=== PATIENT | female | born 1960 | race Caucasian/White ===

== ENCOUNTER 2019-10-27 06:23 | Emergency (ER) | payer OTHER, SELFPAY ==
[2019-10-27] VITALS (11 sets, daily range): BP systolic 124–150; BP diastolic 61–97; PULSE 71–95; RESP 16–20; TEMP 36.6; O2SAT 96–98
--- NOTE | ~2019-10-27 | XR_ITS ---
EXAMINATION: XR chest 1V portable DATE: 10/27/2019 07:03 INDICATION: Chest pain TECHNIQUE: frontal view of the chest was obtained. COMPARISON: None FINDINGS: Minimal streaky left basilar atelectasis. No other airspace opacities, pulmonary edema, pleural effus ion or pneumothorax. The cardiomediastinal silhouette is normal. Moderate degenerative skeletal [place] es in the spine and bilateral shoulders. IMPRESSION: 1. Minimal left basilar atelectasis. Reviewed, dictated and finalized at location A. DEVELOPER
--- NOTE | 2019-10-27 06:25 | ECG_ITS ---
Measurements Intervals [place] Rate: 90 P: 57 MS: 168 QRS: -58 QRSD: 82 T: 74 QT: 351 QTc: 431 Interpretive Statements SINUS RHYTHM LEFT AXIS DEVIATION POOR R WAVE PROGRESSION, ANTERIOR LEADS BORDERLINE T WAVE ABNORMALITY- LATERAL LEADS BASELINE ARTIFACT- I, II BORDERLINE ECG Electronically Signed On 10-27-2019 7:15:06 OPERATIONAL INTELLIGENCE ANALYST by Corbin Mishra D.O.
--- NOTE | 2019-10-27 06:45 | PC.NURSE ---
Noted pts. pain is chest wall type pain and increases when touching Rt. side upper chest wall and shoulder. Pt. deneis any different type work or injury.
--- NOTE | 2019-10-27 06:51 | ED.CHESTPAIN ---
HPI - Chest Pain General Chief Complaint: Chest Pain <Madhav Vega MD - Last Filed: 10/27/19 07:07> Stated Complaint: chest pains <Madhav Vega MD - Last Filed: 10/27/19 07:07> Time Seen by Provider: 10/27/19 06:35 <Madhav Vega MD - Last Filed: 10/27/19 07:07> Source: patient <Madhav Vega MD - Last Filed: 10/27/19 07:07> Limitations: no limitations <Madhav Vega MD - Last Filed: 10/27/19 07:07> History of Present Illness HPI narrative: Jazmyn is a 59-year-old female patient. She presents to the emergency room herself from home. She states that she started having some pain in the chest at 3:00 a.m.. She describes it as a pressure type of pain. This is just to the right of the sternum. By 4:00 a.m. the pain became constant. It radiates to the right shoulder and then down the right arm. Jazmyn has history of hypertension. She is a smoker. She has history of hypertension. She has not had an AL in the past. She rates the pain at 8/10. <Madhav Vega MD - Last Filed: 10/27/19 07:07> MD complaint: chest pain <Madhav Vega MD - Last Filed: 10/27/19 07:07> Pertinent past history: other ( See HPI narrative above) <Madhav Vega MD - Last Filed: 10/27/19 07:07> Onset (ago): hour(s) ( started at 3:00 a.m. today. By 4:00 a.m. it became constant) <Madhav Vega MD - Last Filed: 10/27/19 07:07> Timing of current episode: constant and still present <MD Shantell Dorado Last Filed: 10/27/19 07:07> Prior episodes: No <Madhav Vega MD - Last Filed: 10/27/19 07:07> Onset: during rest <MD Shantell Dorado Last Filed: 10/27/19 07:07> Pain location: right chest <MD Shantell Dorado Last Filed: 10/27/19 07:07> Pain radiation: right arm and right shoulder <MD Shantell Dorado Last Filed: 10/27/19 07:07> Pain scale (0-10): 8 <MD Shantell Dorado Last Filed: 10/27/19 07:07> Quality: other ( pressure type of pain) <MD Shantell Dorado Last Filed: 10/27/19 07:07> Relieving factors: nothing <MD Shantell Dorado Last Filed: 10/27/19 07:07> Exacerbating factors: palpation and other ( palpation of right costo chondral areas is painful) <MD Shantell Dorado Last Filed: 10/27/19 07:07> Context: other ( no history of trauma. Started spontaneously.) <MD Shantell Dorado Last Filed: 10/27/19 07:07> Associated symptoms: other ( No nausea. No vomiting. No diaphoresis. No dizziness or syncope) <MD Shantell Dorado Last Filed: 10/27/19 07:07> Treatment prior to arrival: none <MD Shantell Dorado Last Filed: 10/27/19 07:07> Risk Factors Coronary artery disease risk factors: hypertension <MD Shantell Dorado Last Filed: 10/27/19 07:07> Related Data On Oral Contraceptives: No <MD Shantell Dorado Last Filed: 10/27/19 07:07> Home Medications: Home Medications Medication Instructions Recorded Confirmed meloxicam 15 mg PO DAILY 10/27/19 10/27/19 sertraline [Zoloft] 50 mg PO DAILY 10/27/19 10/27/19 <MD Shantell Dorado Last Filed: 10/27/19 07:07> Allergies/Adverse Reactions: Allergies Allergy/AdvReac Type Severity Reaction Status Date / Time Penicillins Allergy Intermediate Verified 11/19/18 10:28 <Madhav Vega MD - Last Filed: 10/27/19 07:07> Review of Systems Review of Systems: All systems reviewed & are unremarkable except as noted in HPI and below <Madhav Vega MD - Last Filed: 10/27/19 07:07> Constitutional: Constitutional: Reports as per HPI, Reports no additional constitutional complaints, Denies chills and Denies fever(s) <Madhav Vega MD - Last Filed: 10/27/19 07:07> Eyes: Eyes: Reports as per HPI, Reports no additional eye complaints and Denies change in vision <Madhav Vega MD - L
[2019-10-27] MEDS: ASPIRIN 81 MG CHEWABLE TABLET 324 MG PO (06:54)
[2019-10-27] MEDS: NITROGLYCERIN SL 0.4 MG TABLET SUBLINGUAL (06:55)
[2019-10-27 07:14] LABS: Basophils Absolute Auto 0.06 K/mm3 (0.00-0.10); Basophils Percent Auto 0.6 % (0.0-1.0); Eosinophils Absolute Auto 0.12 K/mm3 (0.02-0.50); Eosinophils Percent Auto 1.2 % (1.0-6.0); Hematocrit 40.2 % (35.0-49.0); Hemoglobin 13.5 g/dL (12.0-15.0); Immature Granulocyte Absolute 0.08 K/mm3 (0.00-0.00); Immature Granulocyte Percent A 0.8 % (0.0-0.0); Lymphocytes Absolute Auto 1.42 K/mm3 (1.10-4.50); Lymphocytes Percent Auto 14.7 % (18.0-42.0); Mean Corpuscular HGB Conc 33.6 g/dL (32.0-36.0); Mean Corpuscular Hemoglobin 28.7 pg (27.0-31.0); Mean Corpuscular Volume 85.5 fL (78.0-102.0); Monocytes Absolute Auto 0.44 K/mm3 (0.10-0.90); Monocytes Percent Auto 4.6 % (2.0-11.0); Neutrophils Absolute Auto 7.5 K/mm3 (1.7-7.2); Neutrophils Percent Auto 78.1 % (50.0-70.0); Platelet Count Result 273 K/mm3 (150-420); Red Cell Distribution Width 11.9 % (11.6-14.4); White Blood Count 9.7 K/mm3 (4.8-10.8)
[2019-10-27 07:27] LABS: Partial Thromboplastin Time 23.5 SEC (22.3-31.6); Prothrombin Time 10.7 Seconds (9.64-11.0)
[2019-10-27 07:38] LABS: BNP 20.2 pg/mL (0-100)
[2019-10-27 07:41] LABS: Alanine Aminotransferase 39 U/L (14-59); Albumin Level 3.8 g/dL (3.4-5.0); Alkaline Phosphatase 136 U/L (46-116); Aspartate Amino Transferase 24 U/L (15-37); Bilirubin,Total 0.4 mg/dL (0.00-1.00); Blood Urea Nitrogen 17 mg/dL (7-18); Calcium 8.6 mg/dL (8.5-10.1); Carbon Dioxide 27 mmol/L (21-32); Chloride 104 mmol/L (98-108); Creatine Kinase 36 U/L (26-192); Estimated CRCL calculation 76 ml/min; Estimated Glomerular Filt Rate > 60; Glucose 207 mg/dL (70-99); Magnesium 1.6 mg/dL (1.8-2.4); Osmolality Calculated 297 mOsm/kg (285-295); Sodium 140 mmol/L (136-145); Total Protein 7.9 g/dL (6.4-8.2)
[2019-10-27 07:42] LABS: Troponin I < 0.02 ng/mL (0.00-0.056)
--- NOTE | 2019-10-27 08:21 | PC.NURSE ---
ERP spoke c pt. re:tests and POC for another Trop draw in 3 hrs. Pt. resting, VSS, Mon. shows NSR.
[2019-10-27] MEDS: PANTOPRAZOLE SODIUM IV 40 MG VIAL IV PUSH (08:48)
--- NOTE | 2019-10-27 09:36 | PC.NURSE ---
Pt. sleeping, VSS, Mon. NSR.
[2019-10-27 10:30] LABS: Troponin I 0.43 ng/mL (0.00-0.056)
--- NOTE | 2019-10-27 10:30 | ECG_ITS ---
Measurements Intervals [place] Rate: 89 P: 64 [place]: 163 QRS: 259 QRSD: 86 T: 90 QT: 361 QTc: 441 Interpretive Statements SINUS RHYTHM INDETERMINATE AXIS LOW QRS VOLTAGE IN LIMB LEADS POOR R WAVE PROGRESSION, ANTERIOR LEADS BORDERLINE T WAVE ABNORMALITY- LATERAL LEADS BORDERLINE ECG Electronically Signed On 10-27-2019 10:51:14 OUTSIDE MAINTENANCE WORKER by Corbin Mishra D.O.
--- NOTE | 2019-10-27 10:36 | PC.NURSE ---
Call back from lab c report of elevated Troponin. ERP spoke c pt. about transfer to [facility] for Non-Stemi. Call placed to [facility] cooridinator. Will await call back from manager private.. Pt. reports minimal pain, VSS, mon. shows NSR.
--- NOTE | 2019-10-27 10:58 | PC.NURSE ---
Pt.r clement beltran, VSS, Report given to ELLIS walsh
[2019-10-27] MEDS: METOPROLOL TARTRATE 25 MG TABLET PO (11:23)
[2019-10-27] MEDS: HEPARIN SODIUM 5,000 UNITS/ML VIAL 4000 UNITS IV PUSH (11:24)
[2019-10-27] MEDS: HEPARIN SOD/D5W 100 UNITS/ML 25,000 UNITS/250 ML BAG 11.88 UNITS IV CONT (11:24)
--- NOTE | 2019-10-27 11:42 | PC.NURSE ---
DR. HOUSTON AND DR WASHINGTON TO ACCEPT PT AT [facility]. AWAITING BED ASSIGNMENT. PT RESTING COMFORTABLY ON STRETCHER, NOT COMPLAINTS AT THIS TIME.
--- NOTE | 2019-10-27 12:50 | PC.NURSE ---
REPORT TO JOSE A Amanda, [facility] CONTACTED FOR TRANSPORT.
--- NOTE | 2019-10-27 12:59 | PC.NURSE ---
Pt ambulatory to bathroom, no complaints at this time. Awaiting [facility] for transfer.
--- NOTE | 2019-10-27 13:05 | PC.NURSE ---
Per protocol heparin drip maximum is 1000 units/hour, edp advised of protocol and vorb for dosage change to 1000 units per hour (10ml/hr) of heparin iv.
--- NOTE | 2019-10-27 13:29 | PC.NURSE ---
Marta at [facility] contacted with 6 hour troponin and heparin drip dosage.
== END 2019-10-27 13:20 | disposition short-term general hospital (02) ==
PROVIDERS: Surgery; Emergency Provider Emergency Medicine; PCP Nurse Practitioner Family
DX: I21.4 Non-ST elevation (NSTEMI) myocardial infarction (principal); R07.89 Other chest pain; I10 Essential (primary) hypertension; F17.200 Nicotine dependence, unspecified, uncomplicated
CPT/HCPCS: 36415; 71045; 80053; 82550; 82553; 83735; 83880; 84484; 85025; 85380; 85610; 85730; 93005; 96365; 96366; 96375; 99285; A9270; C9113; J1644

== ENCOUNTER 2019-10-27 14:00 | Inpatient (IN) | payer OTHER, SELFPAY ==
[2019-10-27] VITALS (17 sets, daily range): BP systolic 109–165; BP diastolic 69–99; PULSE 61–101; RESP 10–30; TEMP 36.3–37.2; O2SAT 95–100; BMI 36.0
--- NOTE | 2019-10-27 | ECHO_ITS ---
Patient Info Name: Jazmyn Mcdonald Age: 59 years : 1960 Gender: Female Ht: 66 in Wt: 222 lbs BSA: 2.21 m2 HR: 73 bpm BP: 142 / 99 mmHg Heart Rhythm: Sinus Rhythm Technical Quality: Fair Exam Date: 10/27/2019 3:10 PM Exam Location: [facility] Patient Status: Inpatient Admit Date: 10/27/2019 Staff Ordering Physician: Jesus Kennedy MD General Road Production Manager: Edgardo Peterson RDCS Attending Provider: Tonny Darnell MD Exam Type: CA echo doppler color flow Study Info Indications I21.4 - Non-ST elevation (NSTEMI) myocardial infarction Complete two-dimensional, color flow and Doppler transthoracic echocardiogram is performed. History/Risk Factors NSTEMI; chest pain and HTN. Summary 1. Left ventricular systolic function is normal, estimated at 60-65%. 2. The left ventricular diastolic function is normal. 3. Left ventricular chamber dimension is normal. 4. There is trace mitral valve regurgitation. 5. There is mild tricuspid valve regurgitation. Left Ventricle Left ventricular chamber dimension is normal. Left ventricular systolic function is normal, estimated at 60-65%. There is no increased left ventricular wall thickness. Left ventricular septal wall motion is normal. The left ventricular diastolic function is normal. Right Ventricle Right ventricular chamber dimension is normal. Right ventricular systolic function is normal. Left Atria Left atrial chamber dimension is normal. Right Atria Right atrial chamber dimension is normal. Aortic Valve The aortic valve is trileaflet. There is no aortic valve sclerosis. There is no aortic valve stenosis. There is no aortic valve regurgitation. Pulmonic Valve The pulmonic valve is normal. There is no pulmonic valve stenosis. There is no pulmonic regurgitation. Mitral Valve The mitral valve has normal leaflets. There is no mitral valve stenosis. There is trace mitral valve regurgitation. Tricuspid Valve The tricuspid valve leaflets are normal. There is no significant tricuspid valve stenosis. There is mild tricuspid valve regurgitation. Pericardium/Pleural The pericardium appears normal. There is no pericardial effusion. Aorta The aortic root size at the sinus of Valsalva is normal. The prox ascending aorta size is normal. Tricuspid Valve Name Value Normal Estimated PAP/RSVP RA Pressure 5 mmHg <=5 Report Signatures
--- NOTE | 2019-10-27 14:00 | PC.NURSE ---
This patient, Jazmyn Mcdonald, was admitted to IMU Room 213-01. Patient/family oriented to hospital policies and general routines including ID bracelet, bed and alarms, visiting hours, pain management, procedures, bathroom and other care routines, personal items, smoking policy, room service/diet, and visiting hours. Valuables list has been completed. Information on how to activate the Rapid Response Team has been discussed. Patient/Family are encouraged to report perceived risks to care and to ask questions if they do not understand what they are told or what they should do.
--- NOTE | 2019-10-27 15:30 | PM.CNCAR ---
Assessment and Plan Assessment and plan (1) Acute non-ST elevation myocardial infarction (NSTEMI): Code(s): I21.4 - Non-ST elevation (NSTEMI) myocardial infarction Status: Acute Assessment and Plan: She had significant chest pain, her troponin slightly elevated, will start on aspirin and heparin, will proceed with cardiac catheterization. Procedure discussed with the patient, risks, benefits, alternative diagnostic measures were explained (2) Atypical chest pain: Code(s): R07.89 - Other chest pain Status: Acute Assessment and Plan: With troponin elevation, suggestive of non ST elevation myocardial infarction. (3) Nonsustained ventricular tachycardia: Code(s): I47.2 - Ventricular tachycardia Status: Acute Assessment and Plan: She had 1 episode of nonsustained ventricular tachycardia, not symptomatic, will start on metoprolol, treat her underlying ischemia with heparin and aspirin, and proceed with cardiac catheterization today (4) Smoking: Code(s): F17.200 - Nicotine dependence, unspecified, uncomplicated Status: Acute (5) Leg swelling: Code(s): M79.89 - Other specified soft tissue disorders Status: Acute (6) Morbid obesity: Code(s): E66.01 - Morbid (severe) obesity due to excess calories Status: Acute Additional Plan Thank you for allowing me to participate in this patient's care, I will be following up with you. Please do not hesitate to call me for any other inquiry History of Present Illness History of Present Illness Consult date/time: 10/27/19 15:30 Chief complaint is chest pain. 59-year-old lady with history of hypertension, history of smoking, came to the hospital because of chest pain. Initially is having right shoulder pain and subsequently started having shortness breath and after that start having central chest pain with radiation to right shoulder, and then with radiation to the left shoulder. Pain was 8/10 initially she arrived to [facility], and there noted to have slightly elevated troponin. She was transferred here for further evaluation and treatment. Her pain improved but now as I am talking to her she has 2/10, and she had 1 run of nonsustained ventricular tachycardia. No known history of coronary artery disease no history previous myocardial infarction. She was she is relatively active but she has been having significant worsening shortness of breath for the past few weeks. No dizziness no syncope she has [id number] leg swelling more so on the left leg Reason For Visit: NSTEMI Review of Systems Constitutional: Constitutional: Reports fatigue, Reports lethargy and Reports weakness Cardiovascular: Cardiovascular: Reports as per HPI Respiratory: Respiratory: Reports dyspnea Gastrointestinal: Gastrointestinal: Reports heartburn, Denies nausea and Denies vomiting [facility] Past Medical History Medical History Anxiety Hypertension Family History Family History Father , father in his 70s. He was diabetic Diabetes mellitus Sibling Diabetes mellitus Grandparent Breast cancer Skin cancer Hypertension Grandparent Pancreatic cancer Social History Social History Smoking status: Current every day smoker Alcohol intake: unknown Substance use: unknown Substance use type: does not use Spiritual care concerns: No Agree to blood products: Yes Meds Home Medications and Allergies Home Medications Medication Instructions Recorded Confirmed Type amlodipine 10 mg tablet 10 mg PO DAILY #30 tablet 08/17/19 10/27/19 Rx benazepril 40 mg tablet 40 mg PO DAILY #30 tablet 08/17/19 10/27/19 Rx levothyroxine 200 mcg tablet 200 mcg PO DAILY #30 tablet 08/17/19 10/27/19 Rx meloxicam 15 mg PO DAILY 10/27/19 10/27/19 History
[2019-10-27 15:47] LABS: Cholesterol 149 mg/dL (0-200); HDL Direct 64 mg/dL; Triglycerides 96 mg/dL (<150)
--- NOTE | 2019-10-27 15:49 | PM.IMHP ---
H&P: HPI History of Present Illness Chief complaint: NSTEMI Narrative: Date of visit 10/27 1529. Jazmyn Mcdonald is a 59 year old hypertensive white female smoker who was awoken from sleep approximately 2-3 a.m. with substernal pressure sensation. She had no associated symptoms of diaphoresis nausea or shortness of breath. Pain seemed to radiate from right arm and after an hours and worsened so she drove herself to the emergency room. On arrival to the emergency room she was given aspirin and nitroglycerin and pain started to subside. First troponin was not detected but the 2nd was elevated at 0.43, cardiology was contacted and she is transferred to [facility]. She has never had pain like this in the past and her risk factors include smoking and hypertension but no family history or hyperlipidemia. She was given a beta-laith along with the aspirin and started on heparin drip before transfer. 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 He was diabetic Diabetes mellitus Sibling Diabetes mellitus Grandparent Breast cancer Skin cancer Hypertension Grandparent Pancreatic cancer Social History Social History Smoking status: Current every day smoker Tobacco type: cigarettes Alcohol intake: unknown Substance use: unknown Substance use type: does not use Spiritual care concerns: No Agree to blood products: Yes Meds Home Medications and Allergies Home Medications Medication Instructions Recorded Confirmed Type amlodipine 10 mg tablet 10 mg PO DAILY #30 tablet 08/17/19 10/27/19 Rx benazepril 40 mg tablet 40 mg PO DAILY #30 tablet 08/17/19 10/27/19 Rx levothyroxine 200 mcg tablet 200 mcg PO DAILY #30 tablet 08/17/19 10/27/19 Rx meloxicam 15 mg PO DAILY 10/27/19 10/27/19 History sertraline [Zoloft] 50 mg PO DAILY 10/27/19 10/27/19 History Allergies Allergy/AdvReac Type Severity Reaction Status Date / Time Penicillins Allergy Severe Anaphylactic Verified 10/27/19 15:04 Shock Vital Signs Vital Signs - 24 hr 10/27/19 14:00 Temperature 36.3 C L Pulse Rate 72 Respiratory Rate 16 Blood Pressure 142/99 H Pulse Oximetry 96 Exam Narrative: Exam Narrative: Blood pressure 142/86 pulse 72 she is afebrile saturating 95% on room air Pupils equal reactive to light sclera anicteric Neck supple no adenopathy thyromegaly carotid bruits Lungs clear CV regular rate rhythm no murmurs or gallops There is some pain on palpation right anterior chest wall which is not the same as the pain she experienced this a.m. Abdomen soft nontender no masses bowel sounds normal active Extremities without edema distal pulses are 2+ Integument no rashes or skin breakdown Neuro cranial nerves 2-12 are intact no focal neurological deficit Psych profound affect pleasant Assessment and Plan Assessment and plan (1) Acute non-ST elevation myocardial infarction (NSTEMI): Code(s): I21.4 - Non-ST elevation (NSTEMI) myocardial infarction Status: Acute Assessment and Plan: Troponin is climbed above 1. Still no EKG changes and chest pain is
[2019-10-27 15:55] LABS: Basophils Absolute Auto 0.1 K/mm3 (0.0-0.1); Basophils Percent Auto 0.5 % (0.2-1.2); Eosinophils Absolute Auto 0.1 K/mm3 (0-0.3); Eosinophils Percent Auto 0.8 % (0-4.4); Hematocrit 39.8 % (37.0-47.0); Hemoglobin 13.2 g/dL (12.0-15.0); Immature Granulocyte Absolute 0.07 K/mm3 (0.00-0.031); Immature Granulocyte Percent A 0.6 % (0-0.5); Lymphocytes Absolute Auto 2.06 K/mm3 (0.9-3.2); Lymphocytes Percent Auto 18.4 % (18.3-44.2); Mean Corpuscular HGB Conc 33.2 g/dl (32-36); Mean Corpuscular Hemoglobin 28.5 pg (26-34); Mean Platelet Volume 9.6 fl (7.4-10.4); Monocytes Absolute Auto 0.6 K/mm3 (0.1-0.6); Monocytes Percent Auto 5.4 % (2.6-8.5); Neutrophils Absolute Auto 8.3 K/mm3 (1.3-6.7); Neutrophils Percent Auto 74.3 % (45.5-73.1); Platelet Count Result 327 k/mm3 (150-375); Red Blood Count 4.63 M/mm3 (4.2-5.4); Red Cell Distribution Width 12.1 % (11.5-14.5); White Blood Count 11.2 K/mm3 (4.5-10.0)
[2019-10-27 15:58] LABS: LDL Cholesterol Direct 78 mg/dL
--- NOTE | 2019-10-27 16:00 | PC.NURSE ---
Pt to laboratory technician for procedure
[2019-10-27 16:06] LABS: INR 1.1; Prothrombin Time 13.5 Seconds (11.1-14.7)
[2019-10-27 16:07] LABS: Partial Thromboplastin Time 41.1 SECONDS (22.3-36.8)
--- NOTE | 2019-10-27 19:01 | P.PCNCC_ITS ---
Cardiac Cath Procedure Note Date of procedure:: 10/27/19 Performing physician:: Jesus Kennedy MD Procedure: 1. Left heart catheterization, selective coronary angiogram. 2. Left ventricular angiogram. 3. Balloon angioplasty to the diagonal branch of the LAD. 4. Stent placement to the diagonal branch of the LAD 5. Conscious sedation. Census Taker: Dr. Jesus Kennedy Complications: None. Sedation: Conscious sedation, local anesthesia, using 1 mg of Versed said, 25 mcg of fentanyl, and using 1% lidocaine for local anesthesia. Technique: After informed consent was obtained from patient, was brought to the floating labor gang supervisor, put in the floating labor gang supervisor table, prepped and draped in usual sterile fashion. Five Taiwanese sheath was inserted into the right common femoral artery, through the sheath 5 Taiwanese JL4 catheter inserted, advanced to the left coronary artery, left coronary artery angiogram was obtained. The catheter was exchanged over guidewire into a 5 Taiwanese JR4 catheter, advanced to the right coronary artery, right coronary artery angiogram was obtained. The catheter then was exchanged over guidewire into this 5 Taiwanese pigtail catheter, advanced to left ventricle, left ventricular angiogram was obtained. this sheath was changed over guidewire to 6 Taiwanese sheath, through that guiding catheter was inserted CLS 3.5 insert to the left main, and repeat angiogram was done, subsequently BMW wire was inserted advanced to the area of narrowing to that diagonal branch, and subsequently emerge balloon was inserted 2 0 x 12, inserted advanced to the area of narrowing, inflation was made with 10 atmospheric pressure. Repeat angioplasty was done slightly distally, with significant improvement of the lesion. Repeat angiogram showed recurrence of the lesion with the recoil, and it was decided to proceed with stent placement. 2.25 x 8 mm Xience stent was used. Final angiogram after the stent placement showed good result with DOUG 3 flow Hemodynamics: aortic pressure 124/60 . LV pressure 124/04 with LVEDP of 16 mmHg Angiographic findings: Left main: Medium size artery no significant disease or stenosis. Lad medium size artery showed no significant disease or stenosis however this 2nd diagonal branch showed total occlusion of the proximal portion. This was treated with balloon angioplasty followed by stent with good distal flow finally Left circumflex artery, medium size artery, no significant disease or stenosis. RCA: Dominant vessel, showed no significant disease or stenosis LV: Normal size left ventricle with normal left ventricular systolic function. Summary: single-vessel coronary disease with total occlusion of the 2nd diagonal branch, status post angioplasty with stent placement using 2.25 by 8 stent with good results Recommendation: continue Angiomax for 2 more hours, after sheath pulling will continue with aspirin Brilinta metoprolol and Crestor
[2019-10-27] MEDS: SODIUM CHLORIDE 0.9% IV 1,000 ML 80 ML IV CONT (19:39)
[2019-10-27] MEDS: AMLODIPINE BESYLATE 5 MG TABLET PO (19:42)
[2019-10-27] MEDS: ATORVASTATIN 40 MG TABLET PO (19:45)
[2019-10-27] MEDS: hydrALAZINE HCL 20 MG/ML VIAL 10 MG IV PUSH (20:43)
[2019-10-28] VITALS (17 sets, daily range): BP systolic 97–134; BP diastolic 36–92; PULSE 58–107; RESP 9–19; TEMP 36.7–37.1; O2SAT 86–98
--- NOTE | 2019-10-28 00:19 | ECG_ITS ---
Measurements Intervals [place] Rate: 43 P: 0 DC: 183 QRS: 3 QRSD: 98 T: 109 QT: 416 QTc: 353 Interpretive Statements SINUS BRADYCARDIA WITH MARKED SINUS ARRHYTHMIA SINUS PAUSE ST-T WAVE ABNORMALITY IN LATERAL LEADS- CONSIDER ISCHEMIA BASELINE ARTIFACT- AVR, AVL, AVF ABNORMAL ECG Electronically Signed On 10-28-2019 7:09:53 CLAM DREDGER by Corbin Mishra D.O.
[2019-10-28] MEDS: TICAGRELOR 90 MG TABLET PO ×3 (00:58→20:38)
[2019-10-28 04:59] LABS: Basophils Absolute Auto 0.1 K/mm3 (0.0-0.1); Basophils Percent Auto 0.5 % (0.2-1.2); Eosinophils Absolute Auto 0.1 K/mm3 (0-0.3); Eosinophils Percent Auto 1.1 % (0-4.4); Hematocrit 37.8 % (37.0-47.0); Hemoglobin 12.9 g/dL (12.0-15.0); Immature Granulocyte Absolute 0.06 K/mm3 (0.00-0.031); Immature Granulocyte Percent A 0.6 % (0-0.5); Lymphocytes Absolute Auto 1.38 K/mm3 (0.9-3.2); Lymphocytes Percent Auto 14.4 % (18.3-44.2); Mean Corpuscular HGB Conc 34.1 g/dl (32-36); Mean Corpuscular Hemoglobin 28.7 pg (26-34); Mean Platelet Volume 9.1 fl (7.4-10.4); Monocytes Absolute Auto 0.7 K/mm3 (0.1-0.6); Monocytes Percent Auto 6.8 % (2.6-8.5); Neutrophils Absolute Auto 7.4 K/mm3 (1.3-6.7); Neutrophils Percent Auto 76.6 % (45.5-73.1); Platelet Count Result 285 k/mm3 (150-375); White Blood Count 9.6 K/mm3 (4.5-10.0)
[2019-10-28 05:13] LABS: Blood Urea Nitrogen 14 mg/dL (7-17); Calcium 9.1 mg/dL (8.4-10.2); Carbon Dioxide 25 mmol/L (22-30); Chloride 97 mmol/L (98-107); Estimated CRCL calculation 123 ml/min; Estimated Glomerular Filt Rate > 60; Glucose 143 mg/dL (65-105); Potassium 3.7 mmol/L (3.4-5.0); Sodium 136 mmol/L (137-145)
[2019-10-28 06:24] LABS: Hemoglobin A1C 7.6 % (<5.7)
[2019-10-28] MEDS: LEVOTHYROXINE SODIUM 100 MCG TABLET 200 MCG PO (06:58)
[2019-10-28] MEDS: lisinopriL 20 MG TABLET 40 MG PO (08:39)
[2019-10-28] MEDS: PANTOPRAZOLE 40 MG TABLET PO (08:39)
[2019-10-28] MEDS: SERTRALINE HCL 50 MG TABLET PO (08:40)
[2019-10-28] MEDS: ASPIRIN 81 MG CHEWABLE TABLET PO (08:40)
[2019-10-28] MEDS: ROSUVASTATIN 10 MG TABLET PO (08:40)
[2019-10-28] MEDS: AMLODIPINE BESYLATE 5 MG TABLET 10 MG PO (08:40)
[2019-10-28] MEDS: METOPROLOL TARTRATE 25 MG TABLET PO ×2 (09:00→20:38)
--- NOTE | 2019-10-28 10:41 | PM.PNCARD ---
Progress Note: A&P Assessment and Plan (1) Hypertension: Code(s): I10 - Essential (primary) hypertension Status: Acute Assessment and Plan: now well controlled cont meds (2) CAD (coronary artery disease): Code(s): I25.10 - Atherosclerotic heart disease of [place] coronary artery without angina pectoris Status: Acute Assessment and Plan: Pt underwent cath and was found to have disease of D2. She underwent PCI/stenting with NENO will need to complete Brilinta therapy for at least one year and ASA 81 QD indefinitely.cont statin and Bblocker Patient appears stable from cardiac standpoint to be transferred to telemetry floor Subjective Date/time seen: 10/28/19 10:41 Pt feels fine. Denies any CP, SOB or palpitations. No LE edema. Pt was seen and examined, chart was reviewed, case d/w pt's nurse. Review of Systems Review of Systems: All systems reviewed & are unremarkable except as noted in HPI and below Constitutional: Constitutional: Reports as per HPI Eyes: Eyes: Reports as per HPI ENT: Reports system reviewed and no additional complaints, except as documented and Reports as per HPI Cardiovascular: Cardiovascular: Reports as per HPI Respiratory: Respiratory: Reports as per HPI Gastrointestinal: Gastrointestinal: Reports as per HPI Genitourinary: Genitourinary: Reports as per HPI Musculoskeletal: Musculoskeletal: Reports as per HPI Exam Const: General: no acute distress Nutritional Appearance: well nourished Orientation/consciousness: patient oriented x3 HENMT: Head: normal to inspection and atraumatic Ears: hearing grossly normal bilaterally Face and sinus: normal facial exam Eyes: General: appearance normal, both eyes and all related structures Pupils: Equal, round and reactive pupils present EOM: EOMs intact bilaterally Neck: Neck: supple Chest: Chest palpation & inspection: normal inspection of the chest Resp: Effort & Inspection: normal respiratory effort and no respiratory distress Auscultation: clear to auscultation bilaterally Cardio: Jugular venous distension: no JVD Rate: regular rate Heart sounds: S1 normal heart sound present, S2 normal heart sound present and no murmurs Peripheral pulses: Peripheral pulses 2+ throughout GI: GI Palp: No abdominal tenderness Auscultation: normal bowel sounds Skin: General skin exam: normal color Neuro: General: patient oriented x3 Cranial nerves: Yes Equal, round and reactive pupils present Extrem: General: normal to inspection, no clubbing, cyanosis or edema and other (R groin clear, no bleeding or hematoma) Objective Data Vital Signs Vital Signs: Vital Signs - 24 hr 10/27/19 14:00 10/27/19 16:00 10/27/19 17:45 Temperature 36.3 C L Pulse Rate 72 85 76 Pulse Rate [Bilateral Pedal (Dorsalis Pedis) Palpation] Respiratory Rate 16 18 Blood Pressure 142/99 H Pulse Oximetry 96 99 10/27/19 18:00 10/27/19 18:15 10/27/19 18:30 Temperature Pulse Rate 72 72 78 Pulse Rate [Bilateral Pedal (Dorsalis Pedis) Palpation] Respiratory Rate 14 15 18 Blood Pressure Pulse Oximetry 99 99 100 10/27/19 19:00 10/27/19 19:30 10/27/19 20:00 Temperature 37.1 C Pulse Rate 72 61 68 Pulse Rate [Bilateral Pedal (Dorsalis Pedis) Palpation] 72 61 Respiratory Rate 16 18 18 Blood Pressure 146/88 H 153/97 H 153/97 H Pulse Oximetry 98 98 98 10/27/19 20:30 10/27/19 21:30 10/27/19 22:00 Temperature 37.2 C Pulse Rate 73 78 101 H Pulse Rate [Bilateral Pedal (Dorsalis Pedis) Palpation] 73 78 101 H Respiratory Rate 17 14 30 H Blood Pressure 165/97 H 145/86 H 109/69 Pulse Oximetry 97 98 100 10/27/19 22:15 10/27/19 22:30 10/27/19 22:45 Temperature Pulse Rate 75 81 81 Pulse Rate [Bilateral Pedal (Dorsalis Pedis) Palpation] 75 81 81 Respiratory Rate 13 16 10 L Blood Pressure 129/81 134/80 132/90 Pulse Oximetry 98 98 98 10/27/19 23:00 10/27/19 23:30 10/28/19 00:00 Temperature 36.7 C Pulse
--- NOTE | 2019-10-28 16:37 | PM.IMPN ---
Progress Note: A&P Assessment and Plan (1) Acute non-ST elevation myocardial infarction (NSTEMI): Code(s): I21.4 - Non-ST elevation (NSTEMI) myocardial infarction Status: Inactive Assessment and Plan: Troponin is climbed above 1. Still no EKG changes and chest pain is subsided. cardiac catheterization revealed the occluded 2nd diagonal which was stented She has received beta-laith, aspirin, IV heparin, and statin has been ordered and now on Brilinta, aspirin (2) Hypertension: Code(s): I10 - Essential (primary) hypertension Status: Acute Assessment and Plan: Blood pressure fair. Continue her amlodipine and DIOGENES-inhibitor and a beta-laith (3) Elevated blood sugar: Code(s): R73.9 - Hyperglycemia, unspecified Status: Acute Assessment and Plan: 7.6 A1c so will be discharging with metformin also (4) Smoking: Code(s): F17.200 - Nicotine dependence, unspecified, uncomplicated Status: Acute Assessment and Plan: Nicotine patch if needed encouraged to stop smoking (5) DVT prophylaxis: Code(s): Z29.9 - Encounter for prophylactic measures, unspecified Status: Acute Assessment and Plan: Low-dose Lovenox Subjective Date/time seen: 10/28/19 16:37 Interval history: Date of visit 10/28 51-year-old hypertensive white female admitted with chest discomfort and elevated troponin. At catheterization 10/27 was found to have occlusion of 2nd diagonal branch of the LAD which was opened and stented. She feels quite well this a.m. with no shortness of breath or chest discomfort. No other lesions found Exam Narrative: Exam Narrative: Blood pressure 134/86 pulse 72 she is afebrile saturating 95% on room air Pupils equal reactive to light sclera anicteric Neck supple no carotid bruits Lungs clear CV regular rate rhythm no murmurs or gallops. Abdomen soft nontender no masses bowel sounds normal active Extremities without edema distal pulses are 2+ Neuro cranial nerves 2-12 are intact no focal neurological deficit Objective Data Vital Signs Vital Signs: Vital Signs - 24 hr 10/27/19 17:45 10/27/19 18:00 10/27/19 18:15 Temperature Pulse Rate 76 72 72 Pulse Rate [Bilateral Pedal (Dorsalis Pedis) Palpation] Respiratory Rate 18 14 15 Blood Pressure Pulse Oximetry 99 99 99 10/27/19 18:30 10/27/19 19:00 10/27/19 19:30 Temperature Pulse Rate 78 72 61 Pulse Rate [Bilateral Pedal (Dorsalis Pedis) Palpation] 72 61 Respiratory Rate 18 16 18 Blood Pressure 146/88 H 153/97 H Pulse Oximetry 100 98 98 10/27/19 20:00 10/27/19 20:30 10/27/19 21:30 Temperature 37.1 C Pulse Rate 68 73 78 Pulse Rate [Bilateral Pedal (Dorsalis Pedis) Palpation] 73 78 Respiratory Rate 18 17 14 Blood Pressure 153/97 H 165/97 H 145/86 H Pulse Oximetry 98 97 98 10/27/19 22:00 10/27/19 22:15 10/27/19 22:30 Temperature 37.2 C Pulse Rate 101 H 75 81 Pulse Rate [Bilateral Pedal (Dorsalis Pedis) Palpation] 101 H 75 81 Respiratory Rate 30 H 13 16 Blood Pressure 109/69 129/81 134/80 Pulse Oximetry 100 98 98 10/27/19 22:45 10/27/19 23:00 10/27/19 23:30 Temperature Pulse Rate 81 77 77 Pulse Rate [Bilateral Pedal (Dorsalis Pedis) Palpation] 81 77 77 Respiratory Rate 10 L 13 16 Blood Pressure 132/90 123/75 115/82 Pulse Oximetry 98 98 95 10/28/19 00:00 10/28/19 01:00 10/28/19 02:00 Temperature 36.7 C Pulse Rate 87 93 Pulse Rate [Bilateral Pedal (Dorsalis Pedis) Palpation] 72 93 Respiratory Rate 14 14 Blood Pressure 117/85 122/86 Pulse Oximetry 86 L 96 97 10/28/19 03:00 10/28/19 04:00 10/28/19 06:00 Temperature 37.1 C Pulse Rate 86 68 70 Pulse Rate [Bilateral Pedal (Dorsalis Pedis) Palpation] 86 Respiratory Rate 9 L 12 11 L Blood Pressure 124/79 110/71 117/90 Pulse Oximetry 98 95 98 10/28/19 08:00 10/28/19 08:59 10/28/19 09:00 Temperature 36.7 C Pulse Rate 92 107 H 83 Pulse Rate [Bilateral Pedal (Dorsalis Pedis
[2019-10-28] MEDS: ENOXAPARIN 40 MG/0.4 ML SYRINGE SUB-Q (20:38)
[2019-10-29] VITALS (7 sets, daily range): BP systolic 95–123; BP diastolic 60–86; PULSE 59–96; RESP 12–20; TEMP 36.8–37.1; O2SAT 96–100
[2019-10-29 04:48] LABS: Basophils Absolute Auto 0.1 K/mm3 (0.0-0.1); Basophils Percent Auto 0.6 % (0.2-1.2); Eosinophils Absolute Auto 0.1 K/mm3 (0-0.3); Eosinophils Percent Auto 1.6 % (0-4.4); Hematocrit 36.9 % (37.0-47.0); Hemoglobin 12.5 g/dL (12.0-15.0); Immature Granulocyte Absolute 0.06 K/mm3 (0.00-0.031); Immature Granulocyte Percent A 0.7 % (0-0.5); Lymphocytes Absolute Auto 1.86 K/mm3 (0.9-3.2); Lymphocytes Percent Auto 22.2 % (18.3-44.2); Mean Corpuscular HGB Conc 33.9 g/dl (32-36); Mean Corpuscular Hemoglobin 29.3 pg (26-34); Mean Corpuscular Volume 86.4 fl (80-100); Mean Platelet Volume 9.5 fl (7.4-10.4); Monocytes Absolute Auto 0.7 K/mm3 (0.1-0.6); Monocytes Percent Auto 8.6 % (2.6-8.5); Neutrophils Absolute Auto 5.5 K/mm3 (1.3-6.7); Neutrophils Percent Auto 66.3 % (45.5-73.1); Platelet Count Result 257 k/mm3 (150-375); Red Blood Count 4.27 M/mm3 (4.2-5.4); Red Cell Distribution Width 12.3 % (11.5-14.5); White Blood Count 8.4 K/mm3 (4.5-10.0)
[2019-10-29 05:03] LABS: Blood Urea Nitrogen 21 mg/dL (7-17); Calcium 9.2 mg/dL (8.4-10.2); Carbon Dioxide 26 mmol/L (22-30); Chloride 99 mmol/L (98-107); Estimated CRCL calculation 91 ml/min; Estimated Glomerular Filt Rate > 60; Glucose 130 mg/dL (65-105); Potassium 3.8 mmol/L (3.4-5.0); Sodium 137 mmol/L (137-145)
[2019-10-29] MEDS: LEVOTHYROXINE SODIUM 100 MCG TABLET 200 MCG PO (05:30)
[2019-10-29] MEDS: SERTRALINE HCL 50 MG TABLET PO (08:33)
[2019-10-29] MEDS: TICAGRELOR 90 MG TABLET PO (08:33)
[2019-10-29] MEDS: METOPROLOL TARTRATE 25 MG TABLET PO (08:33)
[2019-10-29] MEDS: ROSUVASTATIN 10 MG TABLET PO (08:34)
[2019-10-29] MEDS: PANTOPRAZOLE 40 MG TABLET PO (08:34)
[2019-10-29] MEDS: lisinopriL 20 MG TABLET 40 MG PO (08:34)
[2019-10-29] MEDS: ASPIRIN 81 MG CHEWABLE TABLET PO (08:34)
[2019-10-29] MEDS: AMLODIPINE BESYLATE 5 MG TABLET 10 MG PO (08:34)
--- NOTE | 2019-10-30 18:32 | PM.DS ---
DS: Diagnosis Admitting Diagnosis Admitting Diagnosis: Non-ST elevation (NSTEMI) myocardial infarction Discharge Diagnosis (1) Acute non-ST elevation myocardial infarction (NSTEMI): Code(s): I21.4 - Non-ST elevation (NSTEMI) myocardial infarction Status: Inactive Assessment and Plan: Troponin is climbed above 1. Still no EKG changes and chest pain is subsided. cardiac catheterization revealed the occluded 2nd diagonal which was stented She has received beta-laith, aspirin, IV heparin, and statin has been ordered and now on Brilinta, aspirin Pain-free and able to be discharged home post catheterization activity level per Cardiology (2) Hypertension: Code(s): I10 - Essential (primary) hypertension Status: Acute Assessment and Plan: Blood pressure fair. Continue her amlodipine and DIOGENES-inhibitor and a beta-laith (3) Elevated blood sugar: Code(s): R73.9 - Hyperglycemia, unspecified Status: Acute Assessment and Plan: 7.6 A1c so will be discharging with metformin 500 daily and following up with her primary care also (4) Smoking: Code(s): F17.200 - Nicotine dependence, unspecified, uncomplicated Status: Acute Assessment and Plan: Nicotine patch while here and encouraged to stop smoking DS: Summary Hospital Course Hospital Course: 51-year-old hypertensive white female with hyperlipidemia admitted chest discomfort and found to have occluded 2nd diagonal I catheterization with no other significant lesions. Lesion was stented and she did well. Discharged home on statin anti-platelet and beta-laith with her DIOGENES-inhibitor Follow-up with primary and Cardiology within the next 2-3 weeks Time Spent with Patient Time attestation: Total time spent providing and/or coordinating discharge services: 35 minutes Exam Narrative: Exam Narrative: Condition on discharge Blood pressure 124/84 pulse is 76 Lungs clear CV regular rate rhythm Extremities without edema Was about ambulating without a discomfort taken her diet well Discharge Plan Discharge Attending physician on discharge: Tonny Darnell Consulting providers: Jesus Kennedy Discharging Clinician: Tonny Darnell Patient Disposition: Home, Self-Care Activity: other - see discharge instructions Diet: heart healthy Discharge Instructions: post cath-stent activities order per cardiology Patient Instructions: Left Heart Catheterization (DC), How to Stop Smoking (DC), Heart Healthy Diet (DC), Cardiac Rehabilitation (DC) Stand Alone Forms: General Discharge Information Follow-up/Referrals: Jesus Kennedy MD [Physician] - 2 Weeks Alicia Andre NP [Primary Care Provider] - 2 Weeks Discharge Medications: New aspirin [Children's Aspirin] 81 mg Tablet,Chewable 81 mg PO DAILY@0800 Qty: 30 RF: 0 metoprolol tartrate 25 mg Tablet 25 mg PO Q12HR Qty: 60 RF: 0 rosuvastatin [Crestor] 10 mg Tablet 10 mg PO QAM Qty: 30 RF: 0 Brilinta 90 mg Tablet 90 mg PO Q12HR Qty: 30 RF: 0 nitroglycerin 0.4 mg tablet, sublingual 0.4 mg SUBLINGUAL Q5-15M PRN (Reason: chest pain) Qty: 30 RF: 0 Continued meloxicam 7.5 mg tablet 15 mg PO DAILY RF: 0 amlodipine 10 mg tablet 10 mg PO DAILY RF: 0 benazepril 20 mg tablet 40 mg PO DAILY RF: 0 levothyroxine 200 mcg tablet 200 mcg PO DAILY RF: 0 sertraline 50 mg tablet 50 mg PO DAILY RF: 0 Date of admission: 10/27/19 14:00 Primary Care Provider: Alicia Andre Admitting Provider: Tonny Darnell Discharge Date/Time: 10/29/19 12:33 Attending physician on admission: Tonny Darnell
== END 2019-10-29 12:33 | disposition home or self-care (01) | DRG 174 ==
LOC: ANHIMU 15:42 → ANHICU 17:22
PROVIDERS: Specialist; Admitting Provider Internal Medicine; PCP Nurse Practitioner Family; Visit Provider Internal Medicine
PROC: 4A023N7 Measurement of Cardiac Sampling and Pressure, Left Heart, Percutaneous Approach (ICD-10-PCS; CPT 93452; principal; 2019-10-27 16:20)
PROC: 027034Z Dilation of Coronary Artery, One Artery with Drug-eluting Intraluminal Device, Percutaneous Approach (ICD-10-PCS; 2019-10-27 16:20)
DX: I21.4 Non-ST elevation (NSTEMI) myocardial infarction (principal); I25.10 Atherosclerotic heart disease of native coronary artery without angina pectoris; I10 Essential (primary) hypertension; R73.9 Hyperglycemia, unspecified; E78.5 Hyperlipidemia, unspecified; I47.2 Ventricular tachycardia; E66.01 Morbid (severe) obesity due to excess calories; F41.9 Anxiety disorder, unspecified; F17.210 Nicotine dependence, cigarettes, uncomplicated; Z68.36 Body mass index [BMI] 36.0-36.9, adult
CPT/HCPCS: 36415; 80048; 80061; 83036; 84443; 84484; 85025; 85610; 85730; 93005; 93306; 93458; 94660; A9270; C1725; C1769; C1874; C1887; C1894; C9600; J0360; J0461; J0583; J1644; J1650; J2250; J3010; J7030; J7040

== ENCOUNTER 2019-11-03 11:46 | Outpatient (CLI) | payer OTHER, SELFPAY ==
--- NOTE | ~2019-11-03 | US_ITS ---
EXAMINATION: US venous doppler LE RT EXAM DATE: 11/03/2019 12:31 INDICATION: Right leg pain. TECHNIQUE: Multiple grayscale, color flow and Doppler images of the right lower extremity deep venous system were obtained and reviewed. There is no prior study for comparison. FINDINGS: The right common femoral, femoral and profunda veins demonstrate normal color flow, respira tory variation, augmentation and compressibility. Compressibility, color flow confirmed within the r ight popliteal, posterior tibial, peroneal, and greater saphenous veins. There is an hypoechoic avascular region contiguous to the right common femoral artery measuring 3.2 x 1.0 x 2.3 cm. This is most likely a resolving hematoma/seroma from cardiac catheterization patient r eportedly had one week ago. No flow to suggest pseudoaneurysm. There is a lymph node in the right ing uinal region measuring 3.2 x 1.1 x 2.0 cm. IMPRESSION: 1. No right lower extremity deep venous thrombosis. 2. Focal region probably postoperative hematoma/seroma. Reviewed, dictated and finalized at location A. RIALS INTERN
== END 2019-11-03 11:47 | disposition home or self-care (01) ==
LOC: CHSIMG 11:48
PROVIDERS: PCP Nurse Practitioner Family; Visit Provider Nurse Practitioner Family
DX: M79.89 Other specified soft tissue disorders (principal)
CPT/HCPCS: 93971

== ENCOUNTER 2019-11-05 17:55 | Emergency (ER) | payer OTHER, SELFPAY ==
[2019-11-05] VITALS (8 sets, daily range): BP systolic 117–140; BP diastolic 72–79; PULSE 111–115; RESP 22–28; TEMP 37.1; O2SAT 92–97
--- NOTE | ~2019-11-05 | CT_ITS ---
EXAMINATION: CT brain wo con DATE: 11/05/2019 19:24 INDICATION: Confusion and left-sided weakness. Aphasia. TECHNIQUE: Computed tomography (CT) of the head was performed without intravenous contrast. The dose- length product was 605.33 mGy-cm. The mA was adjusted according to patient size. Iterative reconstruc tion technique was employed. COMPARISON: None FINDINGS: Normal brain parenchymal volume. There are scattered mild periventricular and subcortical w maty matter changes, most likely related to small vessel ischemic disease (microangiopathy). No acute intracranial hemorrhage, infarction, mass or mass effect. No ventriculomegaly or midline shift. Basi lar cisterns are patent. Paranasal sinuses and mastoids are pneumatized. No depressed skull fractures . IMPRESSION: 1. No acute intracranial abnormality. 2: Chronic age-related findings. Reviewed, dictated and finalized at location A. TECHNICAL ARCHITECT
--- NOTE | ~2019-11-05 | XR_ITS ---
XR chest 1V portable 11/05/2019 19:10 Indication: Shortness of breath. Procedure: AP portable chest Comparison: 10/27/2019 Findings: Shallow inspiration. Heart size normal for technique and inspiratory level. There is left p erihilar infiltrate. No focal pneumonia, edema, pleural effusion or pneumothorax. Impression: 1: Left perihilar infiltrate, most likely atelectasis versus developing pneumonia. Reviewed, dictated and finalized at location A. UN[employer] SERVICES COORDINATOR Impression: 1: Left perihilar infiltrate, most likely atelectasis versus developing pneumon ia.
--- NOTE | 2019-11-05 18:07 | ECG_ITS ---
Measurements Intervals [place] Rate: 111 P: 33 CA: 164 QRS: -8 QRSD: 89 T: 77 QT: 294 QTc: 400 Interpretive Statements SINUS TACHYCARDIA DELAYED PRECORDIAL R/S TRANSITION NONSPECIFIC T-WAVE ABNORMALITY- LATERAL LEADS BASELINE ARTIFACT- I, III, AVL ABNORMAL ECG Electronically Signed On 11-06-2019 7:13:38 ANTENNA RIGGER by Corbin Misrha D.O.
[2019-11-05] MEDS: ALBUTEROL SULFATE NEB 1.25 MG/3 ML INH INHALATION (18:30)
[2019-11-05] MEDS: methylPREDNISolone SOD SUCC 125 MG VIAL IV PUSH (18:30)
[2019-11-05 18:59] LABS: Base Excess ABG -6.3 mmol/L (0-2); HCO3 ABG 15.9 mmol/L (23-29); Oxygen Content ABG 15.7 %vol (16.0-22.0); Oxygen Saturation ABG 91.1 % (95-97); Oxyhemoglobin 90.5 % (94-100); PCO2 ABG 23.3 mmHg (35-45); PO2 ABG 58.6 mmHg (80-90); Total Hemoglobin 12.3 g/dL; pH ABG 7.45 (7.35-7.45)
[2019-11-05 19:00] LABS: Device ROOM AIR; Hematocrit 32.4 % (35.0-49.0); Hemoglobin 11.7 g/dL (12.0-15.0); Mean Corpuscular HGB Conc 36.1 g/dL (32.0-36.0); Mean Corpuscular Hemoglobin 29.1 pg (27.0-31.0); Mean Corpuscular Volume 80.6 fL (78.0-102.0); Mean Platelet Volume 11.6 fl (9.2-11.8); Modified Allen's Test Pass; Platelet Count Result 114 K/mm3 (150-420); Red Blood Count 4.02 M/mm3 (4.20-5.40); Red Cell Distribution Width 12.5 % (11.6-14.4); Site Drawn RIGHT RADIAL; White Blood Count 9.6 K/mm3 (4.8-10.8)
--- NOTE | 2019-11-05 19:00 | PC.NURSE ---
Pt displaying altered mentation at this time. When asked if she has been taking narcotics, pt responded by talking about catheterization . Dr Shearer aware. Ct head ordered.
[2019-11-05 19:16] LABS: INR 1.2; Partial Thromboplastin Time 30.4 SEC (22.3-31.6); Prothrombin Time 11.9 Seconds (9.64-11.0); Sodium 121 mmol/L (136-145)
[2019-11-05 19:17] LABS: Anion Gap 21.8 mmol/L (7-16); Blood Urea Nitrogen 71 mg/dL (7-18); Carbon Dioxide 18 mmol/L (21-32); Chloride 85 mmol/L (98-108); Potassium 3.8 mmol/L (3.5-5.1)
[2019-11-05 19:17] LABS: Add Urine Microscopic? YES; Appearance Urine Clear (Clear); Bilirubin Urine 1+ (Negative); Blood Urine 2+ (Negative); Color Urine Yellow (Yellow); Glucose Urine UA Negative (Negative); Ketones Urine Negative (Negative); Leukocyte Esterase Ur Negative LEU/UL (Negative); Nitrate Urine Negative (Negative); Protein Urine 1+ (Negative); Specific Grav Ur >= 1.030 (1.010-1.020); Urobilinogen Urine 0.2 mg/dL (0.2-1.0)
[2019-11-05 19:18] LABS: Aspartate Amino Transferase 438 U/L (15-37); Bilirubin,Total 1.1 mg/dL (0.00-1.00); Calcium 8.1 mg/dL (8.5-10.1); Estimated Glomerular Filt Rate 8; Glucose 166 mg/dL (70-99); Magnesium 1.8 mg/dL (1.8-2.4); Osmolality Calculated 276 mOsm/kg (285-295)
[2019-11-05 19:19] LABS: Alanine Aminotransferase 219 U/L (14-59); Albumin Level 2.4 g/dL (3.4-5.0); Alkaline Phosphatase 130 U/L (46-116); Total Protein 7.3 g/dL (6.4-8.2); Troponin I 0.67 ng/mL (0.00-0.056)
[2019-11-05 19:21] LABS: D Dimer 19.92 mg/L (0.19-0.50)
[2019-11-05 19:24] LABS: Influenza Control Valid (Valid)
[2019-11-05 19:25] LABS: BNP 136 pg/mL (0-100); Lactic Acid 2.7 mmol/L (0.4-2.0)
--- NOTE | 2019-11-05 19:25 | PC.NURSE ---
Return from ct scan, full neuro assessment completed. BUE weak but equal. RLE weak, pt unable to lift off gurney. LLE weak but pt is able to lift slightly off gurney.
[2019-11-05 19:35] LABS: Band Neutrophils Percent 15 % (0-6); Basophils Percent Manual 0 % (0-1); Eosinophils Percent Manual 0 % (1-6); Lymphocytes Absolute Manual 0.28 K/mm3 (1.1-4.5); Lymphocytes Percent Manual 3 % (18-44); Metamyelocytes Percent 2 %; Monocytes Absolute Manual 0.19 K/mm3 (0.1-0.90); Monocytes Percent Manual 2 % (3-9); Neutrophils Absolute Manual 8.92 K/mm3 (1.7-7.2); Neutrophils Percent Manual 78 % (46-73); Total Cells Counted 100
[2019-11-05] MEDS: SODIUM CHLORIDE 0.9% IV 1,000 ML 999 ML IV CONT (19:36)
--- NOTE | 2019-11-05 19:36 | PC.NURSE ---
O2 placed at 2L via NC at this time for SpO2 90% on RA.
[2019-11-05 19:38] LABS: Amorphous Sediment Urine Heavy; Bacteria Urine 1+ /hpf; Squamous Epithelial Cell Urine Few /hpf (Few); WBC Urine 0-3 /hpf (0-3)
[2019-11-05 19:46] LABS: Amphetamine Screen Urine Negative (Negative); Barbiturate Screen Urine Negative (Negative); Benzodiazepines Screen Urine Negative (Negative)
[2019-11-05 19:47] LABS: Cannabinoid Screen Urine Negative (Negative); Cocaine Screen Urine Negative (Negative); Methadone Screen Urine Negative (Negative); Opiate Screen Urine Negative (Negative); Phencyclidine Screen Urine Negative (Negative)
--- NOTE | 2019-11-05 20:20 | ED.SOB ---
HPI - SOB/Dyspnea General Chief Complaint: Shortness of Breath/Dyspnea Stated Complaint: AMB Source: patient, family and EMS Mode of arrival: EMS Limitations: altered mental status and clinical condition History of Present Illness HPI Narrative: This is a 59-year-old female presents via EMS to the emergency department with increased shortness of breath with some decreased urine output over the last 2 days. Patient is confused with altered mental status with some body aches, a denies chest pain denies abdominal pain, with no nausea vomiting no diarrhea constipation. Patient recently was diagnosed with a non ST elevation [place] and was sent [facility] where she had a cardiac catheterization and had a balloon angioplasty and subsequently a stent placed in the 2nd diagonal. Patient has a history of hypertension hyperlipidemia hypothyroidism. MD elicited complaint: shortness of breath Onset (ago): day(s) Context: recent illness Timing: constant Severity: severe Exacerbating factors: nothing Relieving factors: oxygen and rest Associated symptoms: cough and wheezing Treatment prior to arrival: oxygen Related Data Home Medications Medication Instructions Recorded Confirmed amlodipine 10 mg PO DAILY 10/29/19 11/03/19 benazepril 40 mg PO DAILY 10/29/19 11/03/19 levothyroxine 200 mcg PO DAILY 10/29/19 11/03/19 meloxicam 15 mg PO DAILY 10/29/19 11/03/19 sertraline 50 mg PO DAILY 10/29/19 11/03/19 nitroglycerin 0.4 mg sublingual 0.4 mg SUBLINGUAL Q5M PRN 11/03/19 11/03/19 tablet Allergies Allergy/AdvReac Type Severity Reaction Status Date / Time Penicillins Allergy Severe Anaphylactic Verified 10/27/19 15:04 Shock Review of Systems Review of Systems: All systems reviewed & are unremarkable except as noted in HPI and below PMFSH Past Medical History Medical History Anxiety CAD (coronary artery disease) History of left heart catheterization Hypertension Morbid obesity Smoking Tobacco dependence Type 2 diabetes mellitus Family History Family History Father , father in his 70s. He was diabetic Diabetes mellitus Sibling Diabetes mellitus Grandparent Breast cancer Skin cancer Hypertension Grandparent Pancreatic cancer Social History Social History Smoking status: Current every day smoker Tobacco type: cigarettes Alcohol intake: unknown Substance use: unknown Substance use type: does not use Gender identity (if verbalized by the patient): Female Spiritual care concerns: No Agree to blood products: Yes Exam Const: General: confusion and ill appearing Nutritional Appearance: obese Limitations: altered mental status and physical limitations HENMT: Head: normal to inspection Eyes: Conjunctivae: conjunctivae normal Pupils: Equal, round and reactive pupils present EOM: EOMs intact bilaterally Neck: Neck: normal visual inspection and no lymphadenopathy Chest: Chest palpation & inspection: normal inspection of the chest Resp: Auscultation: wheezes and diminished lung sounds Cardio: Rate: regular rate and tachycardic Rhythm: regular rhythm GI: GI Palp: Yes Soft to palpation Percussion: Yes normal to percussion : General: Yes no CVA tenderness Skin: General skin exam: normal color Rashes: no rashes Neuro: Speech: normal speech Extrem: General: normal to inspection Course Vital Signs Vital signs: Vital Signs Temperature 37.1 C 11/05/19 17:56 Pulse Rate 111 H 11/05/19 17:56 Respiratory Rate 28 H 11/05/19 17:56 Blood Pressure 132/76 11/05/19 17:56 Pulse Oximetry 93 11/05/19 17:56 Temperature 37.1 C 11/05/19 17:56 Pulse Rate 111 H 11/05/19 17:56 Respiratory Rate 28 H 11/05/19 17:56 Blood Pressure 132/76 11/05/19 17:56 Pulse Oximetry 93 11/05/19 17:5
--- NOTE | 2019-11-05 20:21 | PC.NURSE ---
Call placed to [place]'s access line per family request.
[2019-11-05] MEDS: HEPARIN SODIUM 5,000 UNITS/ML VIAL 4000 UNITS IV PUSH (21:09)
[2019-11-05] MEDS: HEPARIN SOD/D5W 100 UNITS/ML 25,000 UNITS/250 ML BAG 15 UNITS IV CONT (21:10)
--- NOTE | 2019-11-05 21:19 | PC.NURSE ---
Report to ELLIS Aiken at [facility] trauma surg ICU.
--- NOTE | 2019-11-05 21:30 | PC.NURSE ---
[facility] contacted for transport.
== END 2019-11-05 22:12 | disposition short-term general hospital (02) ==
PROVIDERS: Emergency Provider Emergency Medicine; PCP Nurse Practitioner Family
DX: N17.9 Acute kidney failure, unspecified (principal); T79.0XXA Air embolism (traumatic), initial encounter; I25.10 Atherosclerotic heart disease of native coronary artery without angina pectoris; I10 Essential (primary) hypertension; E11.9 Type 2 diabetes mellitus without complications; F17.200 Nicotine dependence, unspecified, uncomplicated
CPT/HCPCS: 36415; 36600; 70450; 71045; 80053; 80307; 81001; 82805; 83605; 83735; 83880; 84484; 85025; 85380; 85610; 85730; 87040; 87186; 87804; 93005; 96365; 96368; 96375; 99291; J0696; J1644; J2930; J3370; J7030

== ENCOUNTER 2020-02-18 12:07 | Inpatient (IN) | payer OTHER, SELFPAY ==
[2020-02-18] VITALS (7 sets, daily range): BP systolic 94–114; BP diastolic 52–63; PULSE 60–78; RESP 16–20; TEMP 35.8–36.6; O2SAT 97–99; BMI 59.4
--- NOTE | ~2020-02-18 | US_ITS ---
EXAMINATION: US venous doppler LE RT DATE: 02/18/2020 14:18 INDICATION: Right calf pain. TECHNIQUE: Grayscale ultrasound images without and with compression and Doppler ultrasound images of the right lower extremity veins were obtained. COMPARISON: Ultrasound 11/03/2019 FINDINGS: The visualized portions of right common femoral vein, profunda (deep) femoral vein, femoral vein, pop liteal vein, peroneal veins, posterior tibial veins, and greater saphenous vein outflow are patent. IMPRESSION: 1. No deep venous thrombosis. Reviewed, dictated and finalized at location A.
--- NOTE | ~2020-02-18 | CT_ITS ---
EXAMINATION: CT knee RT wo con DATE: 02/19/2020 08:48 INDICATION: Right knee pain. TECHNIQUE: Computed tomography (CT) of the right knee was performed without intravenous contrast. Aut omated exposure control and iterative reconstruction technique were employed. The dose-length product was 499.77 mGy-cm. COMPARISON: Right knee radiograph 02/18/2020 FINDINGS: There is posterior subluxation of tibia with respect to distal femur. There is a depression fracture of lateral tibial plateau anteriorly with up to 7 mm depression. There is severe tricompart mental osteoarthritis. No knee joint effusion. There are multiple loose bodies measuring up to 15 mm. IMPRESSION: 1. Depression fracture of lateral tibial plateau. 2. Severe right knee osteoarthritis. 3. Right knee joint loose bodies. Reviewed, dictated and finalized at location A.
--- NOTE | ~2020-02-18 | XR_ITS ---
XR chest 1V portable DATE: 02/18/2020 13:19 INDICATION: Shortness of breath. Epigastric pain. Nausea. History of sepsis. TECHNIQUE: Portable AP chest on 02/18/2020 at 1308 hours COMPARISON: 11/05/2019 portable AP chest FINDINGS: Status post sternotomy. Normal heart size. Epicardial pacemaker wire. No hilar or mediastin al enlargement. No pulmonary infiltrate or consolidation, pleural effusion or pulmonary vascular dallin estion or pneumothorax. Osteoarthritic changes at the glenohumeral joints. Moderate osteopenia. Degenerative spurring of the thoracic spine. Degenerative change of the cervical spine. IMPRESSION: No active cardiopulmonary disease Reviewed, dictated and finalized at location A.
--- NOTE | ~2020-02-18 | XR_ITS ---
XR knee RT 2V DATE: 02/18/2020 13:20 INDICATION: Right knee pain TECHNIQUE: AP and crosstable lateral views COMPARISON: None FINDINGS: There is severe tricompartment osteoarthritis at the knee. No fracture or dislocation or j oint effusion is evident. There is flexion deformity at the knee, resulting in a suboptimal anteroposterior view. If there is s abran clinical suspicion of possible fracture, particularly involving the tibial plateaus consider CT or MR evaluation of the knee. IMPRESSION: Limited examination; severe tricompartment osteoarthritis Consider CT or MRI evaluation of the right knee as clinically appropriate Reviewed, dictated and finalized at location A.
--- NOTE | 2020-02-18 12:34 | ECG_ITS ---
Measurements Intervals [place] Rate: 74 P: 18 VA: 186 QRS: -20 QRSD: 108 T: 41 QT: 411 QTc: 457 Interpretive Statements SINUS RHYTHM NONSPECIFIC ST & T-WAVE ABNORMALITY- DIFFUSE LEADS BASELINE ARTIFACT- I, II, III, AVF BORDERLINE ECG Electronically Signed On 02-18-2020 15:03:22 CDT by Corbin Mishra D.O.
[2020-02-18 12:59] LABS: Hematocrit 31.3 % (35.0-49.0); Mean Corpuscular Volume 81.3 fL (78.0-102.0); Red Blood Count 3.85 M/mm3 (4.20-5.40); White Blood Count 10.7 K/mm3 (4.8-10.8)
[2020-02-18 13:00] LABS: Mean Corpuscular HGB Conc 35.1 g/dL (32.0-36.0); Mean Corpuscular Hemoglobin 28.6 pg (27.0-31.0); Platelet Count Result 340 K/mm3 (150-420); Red Cell Distribution Width 13.1 % (11.6-14.4)
[2020-02-18 13:02] LABS: Appearance Urine Clear (Clear); Color Urine Yellow (Yellow); Glucose Urine UA Negative (Negative); Protein Urine Trace (Negative); Specific Grav Ur 1.015 (1.010-1.020); pH Urine 7.5 (5.0-8.0)
[2020-02-18] MEDS: MORPHINE SULFATE 4 MG/ML INJ IV PUSH (13:02)
[2020-02-18 13:03] LABS: Add Urine Microscopic? YES; Bilirubin Urine Negative (Negative); Blood Urine 2+ (Negative); Ketones Urine Negative (Negative); Leukocyte Esterase Ur Negative (Negative); Nitrate Urine Negative (Negative); Urobilinogen Urine 0.2 mg/dL (0.2-1.0)
[2020-02-18] MEDS: ONDANSETRON INJ 4 MG/2 ML VIAL IV PUSH (13:03)
[2020-02-18] MEDS: SODIUM CHLORIDE 0.9% IV 1,000 ML 999 ML IV CONT (13:03)
[2020-02-18 13:04] LABS: WBC Urine 0-3 /hpf (0-3)
[2020-02-18 13:05] LABS: Bacteria Urine Trace /hpf; Mucus Urine Few /lpf; Squamous Epithelial Cell Urine Few /hpf (Few)
[2020-02-18 13:17] LABS: INR 4.7; Partial Thromboplastin Time 66.4 SEC (22.3-31.6); Prothrombin Time 45.8 Seconds (9.64-11.0)
[2020-02-18 13:21] LABS: Lactic Acid 1.4 mmol/L (0.4-2.0)
[2020-02-18 13:21] LABS: BNP 161 pg/mL (0-100); Thyroid Stimulating Hormone 1.41 uIU/mL (0.36-3.74)
[2020-02-18 13:23] LABS: Sodium 128 mmol/L (136-145)
[2020-02-18 13:24] LABS: Alanine Aminotransferase 15 U/L (14-59); Aspartate Amino Transferase 21 U/L (15-37); Bilirubin,Total 0.9 mg/dL (0.00-1.00); Blood Urea Nitrogen 30 mg/dL (7-18); Calcium 9.6 mg/dL (8.5-10.1); Carbon Dioxide 32 mmol/L (21-32); Chloride 86 mmol/L (98-108); Estimated Glomerular Filt Rate 35; Glucose 111 mg/dL (70-99); Osmolality Calculated 273 mOsm/kg (285-295)
[2020-02-18 13:25] LABS: Albumin Level 3.3 g/dL (3.4-5.0); Alkaline Phosphatase 157 U/L (46-116); Lipase 60 U/L (73-393); Total Protein 8.2 g/dL (6.4-8.2); Troponin I < 0.02 ng/mL (0.00-0.056)
[2020-02-18] MEDS: KCL 20 MEQ/SW 100 ML 100 ML 50 MEQ IVPB ×2 (13:30→22:04)
--- NOTE | 2020-02-18 13:33 | ED.GENADULT ---
HPI - General Adult General Chief complaint: Nausea/Vomiting/Diarrhea Stated complaint: ambulance Source: patient and EMS Mode of arrival: EMS Limitations: no limitations History of Present Illness HPI narrative: This is a 59-year-old female presents to the emergency department via EMS for initial complaint of abdominal pain with nausea and vomiting, patient also is complaining of severe right knee pain that she rates at greater than 10/10, has been staying at [facility] and has been out of her pain medication. 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 Patient currently is afebrile with nausea no current vomiting her abdominal pain has improved with no chest pain no shortness breath no flank pain no dysuria. Patient has a significant past medical history of CHF with ejection fraction of 25 to 30%, his recent aortic valve prosthesis surgery, with a history of coronary artery disease with stent placement, atrial fibrillation is currently on Coumadin history of hypertension hyperlipidemia and depression. Also has Henry significant history for spinal stenosis, fatty liver disease and hypothyroidism. Patient was hospitalized at [facility] in late October of 2019 and subsequent to that was taken to [facility] in [place] where she had the aortic valve prosthesis and debridement of her right septic knee. Currently the patient is staying at [facility] in [place] and has been out of her pain medication. Onset (ago): day(s) Location: right and lower extremity Radiation: abdomen Severity: severe Severity scale (1-10): >10 Quality: aching Pain Consistency: constant Relieving factors: none Exacerbating factors: movement Associated symptoms: denies other symptoms and nausea/vomiting Treatments prior to arrival: NSAID Related Data Home Medications Medication Instructions Recorded Confirmed levothyroxine 200 mcg PO DAILY 10/29/19 02/18/20 sertraline 50 mg PO DAILY 10/29/19 02/18/20 acetaminophen 650 mg PO Q8H 02/18/20 02/18/20 amiodarone 200 mg PO DAILY 02/18/20 02/18/20 carvedilol 3.125 mg PO DAILY 02/18/20 02/18/20 furosemide 40 mg PO DAILY 02/18/20 02/18/20 lidocaine [Aspercreme (lidocaine)] 1 patch TOPICAL DAILY PRN 02/18/20 02/18/20 metolazone 2.5 mg PO DAILY 02/18/20 02/18/20 pantoprazole 40 mg PO DAILY 02/18/20 02/18/20 potassium chloride 20 meq PO DAILY 02/18/20 02/18/20 trazodone 150 mg PO DAILY 02/18/20 02/18/20 warfarin 3 mg PO DAILY 02/18/20 02/18/20 Allergies Allergy/AdvReac Type Severity Reaction Status Date / Time Penicillins Allergy Severe Anaphylactic Verified 11/06/19 13:50 Shock Review of Systems Review of Systems: All systems reviewed & are unremarkable except as noted in HPI and below PMFSH Past Medical History Medical History Anxiety CAD (coronary artery disease) History of left heart catheterization Hypertension Morbid obesity Smoking Tobacco dependence Type 2 diabetes mellitus Family History Family History Father , father in his 70s. He was diabetic Diabetes mellitus Sibling Diabetes mellitus Grandparent Breast cancer Skin cancer Hypertension Grandparent Pancreatic cancer Social History Social History Smoking status: Current every day smoker Tobacco type: cigarettes Alcohol intake: unknown Substance use: unknown Substance use type: does not use Gender identity (if verbalized by the patient): Female Spiritual care concerns: No Agree to blood products: Yes Exam Const: General: no acute distress and alert Orientation/consciousness: patient oriented x3 HENMT: Head: normal to inspection Eyes: Conjunctivae: conjunctivae normal Pupils: Equal, round and reactive p
[2020-02-18 13:37] LABS: Magnesium 1.4 mg/dL (1.8-2.4)
--- NOTE | 2020-02-18 14:03 | PC.NURSE ---
TRANSLATOR/INTERPRETER IN PLACE FOR POTASSIUM INFUSION & NS INFUSING TO FLOOR AT TIME OF TRANSPORT
--- NOTE | 2020-02-18 14:25 | PC.NURSE ---
POTASSIUM AND NS INFUSING AT TIME OF ADMISSION
[2020-02-18] MEDS: LIDOCAINE 5% PATCH 2 PATCH TRANSDERM (16:15)
[2020-02-18] MEDS: MAGNESIUM SULF 4 GM/WATER100ML 4 GM/100 ML BAG IVPB (16:16)
[2020-02-18 16:28] LABS: Phosphorus 2.4 mg/dL (2.6-4.7)
--- NOTE | 2020-02-18 16:45 | PC.NURSE ---
pt here at 1430 from er on stretcher and into bed with maxi slide. c/o pain iserve all over but it is usually in r knee only. misael goes back and forth with story. claims she has been in medical facilities since oct.nd in [place] dropped her in the shower but refused to admit they even dropped her and no medical care done til she got here. did go to [facility] appro[facility] 3 days ago and they did not send a script for pain meds or anxiety meds. sent here today for ? withdrawl s/s. lungs cta. has ivey cath in place. carolyn urine. iv K-rider finishied ns running to gravity at slow rate. changed to ns @100ml/hr. collar separator in room. aware of pain. r knee is awkardly disfigured and has open dry surgical scar. different colors bruising. r foot/ankle area has drg covering a well approx surgical incisional line. she claims drg is s just protective measure.
[2020-02-18] MEDS: MORPHINE SULFATE 2 MG/ML INJ IV PUSH (17:13)
[2020-02-18] MEDS: ACETAMINOPHEN 500 MG TABLET 1000 MG PO (17:14)
[2020-02-18] MEDS: POTASSIUM CHLORIDE 10 MEQ TABLET 40 MEQ PO (17:14)
--- NOTE | 2020-02-18 19:09 | PC.NURSE ---
pt has dk dry scabbed area to l breast. incisional line to cest is well approx.
--- NOTE | 2020-02-18 20:00 | PC.NURSE ---
Multiple requests for items and repositioning of self, sheets and blankets.
[2020-02-18 21:10] LABS: Magnesium 3.1 mg/dL (1.8-2.4)
[2020-02-18 21:15] LABS: Potassium 1.8 mmol/L (3.5-5.1)
[2020-02-18] MEDS: TRAZODONE HCL 50 MG TABLET 150 MG PO (21:36)
[2020-02-18] MEDS: TICAGRELOR 90 MG TABLET PO (21:37)
[2020-02-18] MEDS: carvediloL 3.125 MG TABLET PO (21:50)
[2020-02-18] MEDS: SODIUM CHLORIDE 0.9% IV 1,000 ML 100 ML IV CONT (22:03)
--- NOTE | 2020-02-18 22:57 | PC.NURSE ---
Patient states IV infusion (potassium) hurting up her arm. IV Rate decreased from 50ml/hour to 25ml/hour per IV Pump.
--- NOTE | 2020-02-18 23:35 | PC.NURSE ---
Denies dizziness and headache; B/P: rechecked with same results; Laura, bad credit collector informed. 100ml Sterile Water/ KCL 20meq infusion continues @25ml/hour per IV pump. Patient states still stings but some better.
--- NOTE | 2020-02-18 23:59 | PC.NURSE ---
Lying in bed watching T.V.
--- NOTE | 2020-02-19 00:40 | PC.NURSE ---
Patient lying in bed, moaning, states IV is unbearable and asking if it can be shut off or more fluids hung with it to dilute it. IV infusing @25ml/hr per IV pump. Explained need to complete Potassium infusion as she is unable to swallow or take oral potassium. Laura CORRAL informed patient is loudly moaning, no tears noted and response to IV Potassium per IV pump.
--- NOTE | 2020-02-19 00:45 | PC.NURSE ---
Patient c/o discomfort due to KCL infusion . new order received to run with JAIME
[2020-02-19] MEDS: SODIUM CHLORIDE 0.9% IV 250 ML 150 ML IV CONT (01:00)
--- NOTE | 2020-02-19 01:00 | PC.NURSE ---
Nurse entered patient room. Patient lying quietly watching T.V. No signs of pain or distress noted. Infusion 0.9NS 250ml @150ml/hr started per IV pump
--- NOTE | 2020-02-19 01:55 | PC.NURSE ---
Addendum entered by Kenzie Hernández RN 02/19/20 02:59: 150ml infused and 100ml wasted. Original Note: 250ml 0.9NS IV @150ml/hour per pump; DC'd as Potassium IVPB completed. 170ml infused and 80ml wasted of 250ml 0.9NS Bag. Patient states second IV helped alot.
[2020-02-19 04:00] VITALS: BP 98/57; PULSE 60; PULSE 65; RESP 18; TEMP 36.1; O2SAT 100
[2020-02-19] MEDS: ACETAMINOPHEN 500 MG TABLET 1000 MG PO (04:30)
--- NOTE | 2020-02-19 04:43 | PC.NURSE ---
Patient requests not to be disturbed until breakfast; reminded of need to take Synthroid, agrees to same. Given fresh ice water
[2020-02-19] MEDS: LEVOTHYROXINE SODIUM 100 MCG TABLET 200 MCG PO (05:43)
--- NOTE | 2020-02-19 06:36 | PC.NURSE ---
outer aspect of Right ankle has old decub area. Patient encouraged to turn to left or back to prevent breakdown of area.
[2020-02-19 07:42] VITALS: BP 97/52; PULSE 64; RESP 18; TEMP 35.7; O2SAT 100
[2020-02-19] MEDS: KCL 20 MEQ/SW 100 ML 100 ML 50 MEQ IVPB ×2 (08:01→15:42)
--- NOTE | 2020-02-19 08:11 | PC.NURSE ---
attempting to eat breakfast, some nausea noted, triston galan started
[2020-02-19 08:13] LABS: Basophils Absolute Auto 0.07 K/mm3 (0.00-0.10); Basophils Percent Auto 0.9 % (0.0-1.0); Hematocrit 30.9 % (35.0-49.0); Hemoglobin 10.5 g/dL (12.0-15.0); Immature Granulocyte Absolute 0.07 K/mm3 (0.00-0.00); Immature Granulocyte Percent A 0.9 % (0.0-0.0); Lymphocytes Absolute Auto 0.43 K/mm3 (1.10-4.50); Lymphocytes Percent Auto 5.4 % (18.0-42.0); Mean Corpuscular Hemoglobin 28.4 pg (27.0-31.0); Mean Corpuscular Volume 83.5 fL (78.0-102.0); Mean Platelet Volume 8.1 fl (9.2-11.8); Monocytes Absolute Auto 0.67 K/mm3 (0.10-0.90); Monocytes Percent Auto 8.4 % (2.0-11.0); Neutrophils Absolute Auto 6.8 K/mm3 (1.7-7.2); Neutrophils Percent Auto 84.4 % (50.0-70.0); Platelet Count Result 305 K/mm3 (150-420); Red Cell Distribution Width 13.3 % (11.6-14.4)
[2020-02-19 08:26] LABS: Alanine Aminotransferase 15 U/L (14-59); Albumin Level 3.1 g/dL (3.4-5.0); Alkaline Phosphatase 146 U/L (46-116); Anion Gap 10.3 mmol/L (7-16); Aspartate Amino Transferase 21 U/L (15-37); Bilirubin,Total 0.6 mg/dL (0.00-1.00); Blood Urea Nitrogen 26 mg/dL (7-18); Carbon Dioxide 32 mmol/L (21-32); Chloride 91 mmol/L (98-108); Estimated CRCL calculation 65 ml/min; Estimated Glomerular Filt Rate 40; Glucose 119 mg/dL (70-99); Osmolality Calculated 277 mOsm/kg (285-295); Sodium 131 mmol/L (136-145); Total Protein 7.8 g/dL (6.4-8.2)
[2020-02-19 08:28] LABS: INR 4.2; Potassium 2.3 mmol/L (3.5-5.1)
--- NOTE | 2020-02-19 08:30 | PC.NURSE ---
fly finisher aware of K+ of 2.3 @ this x.
--- NOTE | 2020-02-19 08:33 | PC.NURSE ---
To imaging via [facility]
[2020-02-19 08:35] LABS: Magnesium 2.7 mg/dL (1.8-2.4)
--- NOTE | 2020-02-19 08:47 | PM.IMHP ---
H&P: HPI History of Present Illness Chief complaint: hypokalemia <Lyric Higgins NP - Last Filed: 02/19/20 16:06> Narrative: Jazmyn Mcdonald is a 59 year old female admitted yesterday late afternoon, was nausea, vomiting, diarrhea. She has had a long and complicated recent history including having an MT with CAD and stent placement as well as aortic valve replacement, debridement of the right septic knee, with rehab at [facility] and now at [place], [place]. She was brought to the ER yesterday via EMS ambulance for initial complaint of abdominal pain with nausea and vomiting, as well as complaining of severe right knee pain that she rates at greater than 10/10, has been staying at [facility] and has been out of her pain medication. She was afebrile at admission, with no current vomiting and no current abdominal pain, no chest pain or shortness of breath at ER admission yesterday. Patient has a significant past medical history of CHF with ejection fraction of 25 to 30%, recent aortic valve prosthesis surgery, with a history of coronary artery disease with stent placement, as well as atrial fibrillation with current Coumadin anticoagulation, and history of hypertension/hyperlipidemia and depression. She also has a significant history for spinal stenosis, fatty liver disease and hypothyroidism. Patient was hospitalized at [facility] in late October of 2019, was taken to [facility] in [place] where she had the aortic valve prosthesis, plus debridement of her right septic knee. At the time of her ER admission yesterday, the patient is now staying at [facility] in [place] for the last few days and has been out of her pain medication. her pain at that time was described as severe, achy and consistent, and she has been receiving NSAIDs for pain. Her troponin at admission was WNL. UA was collected and urine and blood cultures pending. BNP 161, continued her daily Lasix 40 mg oral. Her TSH was normal at 1.41, will continue her daily to 200 mcg levothyroxine. Her EKG showed a sinus rhythm with a regular rhythm and heart rate in the 70s, as well as no concerning acute ST changes. Today, Jazmyn was resting in bed, comfortably, no complaints noted today. Her right knee does seem to have permanent disability and deformation, within inability to straighten fully at 180?, seems to rest in bed with it slightly flexed as well as bent out laterally on pillows. When asked her to straight the right leg she was able to get it to about 150-160 ? but cannot bend it to 90? much further than 120 degrees. I have ordered a thorough PT and OT evaluation. There is an incision that is healing extending superiorly midline over the right knee with no sutures and no gilda, well approximated, no scabs in place, no open areas, no drainage. There is no redness or heat to the right knee, but it is painful with palpation. The right knee does not appear to be painful with her own independent movement of flexing and extending. She stated that she was finally able to independently stand with a walker next to her bed at [facility], and that she has been working with a physical therapist there. She denied being able to pivot to a chair though, but they are continuing to work on that. Today she appears to be more comfortable, participating with the nurse in her care and recovery, and undergoing a CT scan of her right knee this morning. She has not had any nausea or vomiting or abdominal pain since her admission or overnight or this morning . She is tolerating her meals and eating well, hydrating herself orally without complaint. Jazmyn appears to be euthymic in emotion/psych and mental status, but does have periods of tearfulness when the pain becomes unbearable. Since the patient is here for pain control to be established and the pain control plan to be continued at discharge, I have
--- NOTE | 2020-02-19 08:52 | PC.NURSE ---
returned from imaging
[2020-02-19] MEDS: MORPHINE SULFATE 2 MG/ML INJ IV PUSH (09:06)
[2020-02-19] MEDS: PANTOPRAZOLE 40 MG TABLET PO (09:09)
[2020-02-19 09:11] VITALS: PULSE 64
[2020-02-19] MEDS: FUROSEMIDE 40 MG TABLET PO (09:11)
[2020-02-19] MEDS: AMIODARONE HCL 200 MG TABLET PO (09:11)
[2020-02-19] MEDS: ROSUVASTATIN 10 MG TABLET PO (09:11)
[2020-02-19] MEDS: TICAGRELOR 90 MG TABLET PO (09:12)
[2020-02-19] MEDS: carvediloL 3.125 MG TABLET PO (09:12)
[2020-02-19] MEDS: metOLazone 2.5 MG TABLET PO (09:12)
[2020-02-19] MEDS: LIDOCAINE 5% PATCH 2 PATCH TRANSDERM (09:14)
[2020-02-19] MEDS: POTASSIUM/PHOSPHORUS/SODIUM 1.5 GM PACKET 1 PACKET PO (09:19)
[2020-02-19] MEDS: POTASSIUM CHLORIDE 20 MEQ PACKET (FOR LIQUID) 40 MEQ PO ×2 (09:20→15:44)
[2020-02-19] MEDS: SERTRALINE HCL 50 MG TABLET PO (09:20)
[2020-02-19] MEDS: SODIUM CHLORIDE 0.9% IV 1,000 ML 50 ML IV CONT (11:30)
[2020-02-19 12:00] VITALS: BP 100/51; PULSE 71; RESP 18; TEMP 36.2; O2SAT 96
--- NOTE | 2020-02-19 12:09 | PC.NURSE ---
Assisted to sit on edge of bed for lunch
--- NOTE | 2020-02-19 14:00 | PC.NURSE ---
hospitalist in to give results of CT of knee, possible transfer pending due to blood culture and results of CT
[2020-02-19] MEDS: LORAZEPAM 0.5 MG TABLET PO (14:31)
[2020-02-19 14:52] LABS: Anion Gap 8.1 mmol/L (7-16); Blood Urea Nitrogen 23 mg/dL (7-18); Carbon Dioxide 32 mmol/L (21-32); Chloride 89 mmol/L (98-108); Estimated CRCL calculation 69 ml/min; Estimated Glomerular Filt Rate 43; Glucose 125 mg/dL (70-99); Osmolality Calculated 268 mOsm/kg (285-295); Sodium 127 mmol/L (136-145)
[2020-02-19 14:54] LABS: Potassium 2.1 mmol/L (3.5-5.1)
--- NOTE | 2020-02-19 15:18 | PM.DS ---
DS: Admitting Diagnosis Admitting Diagnosis Admitting Diagnosis: Hypokalemia DS: Discharge Diagnosis Discharge Diagnosis (1) Acute hypokalemia: Code(s): E87.6 - Hypokalemia Status: Acute Assessment and Plan: found during her ER admission that her potassium significantly low. Potassium was 2.0 at admission, treating her electrolytes with IV and oral replenishment. refusing all potassium pills, stating the pills were too big and she will not take them , regardless of what dose or strength. agreed to try the potassium powder diluted in fluids, such as Sprite or orange juice or apple juice. ordered a 40 meq KCL powder dose this morning for nursing staff and the patient to try. ordered a 20 mEq KCL IV rider to be given with sodium chloride IV fluids in an attempt to get her potassium level up from 2.3 this morning. repeated a BMP this afternoon and despite all of the oral and IV replenishment, her potassium is 2.1 ordered 20meq KCL IV now plus 40 meq KCl oral powder packets Q 3 hours for 3 doses. Keeping her IV hydration Sodium Chloride at 50ml/hr and hold daily Lasix dose until her potassium replenishment is caught up via IV and oral doses. (2) Acute hyponatremia: Code(s): E87.1 - Hypo-osmolality and hyponatremia Status: Acute Assessment and Plan: received IV sodium chloride infusion overnight her sodium at admission was 128, her sodium today is 131 she denies dizziness and lightheadedness while laying in bed, OT/PT ordered. ordered orthostatics for lying and sitting vital signs have otherwise been stable no tachycardia noted continue telemetry monitoring continuously. daily CMP and daily Mag levels to monitor sodium level (3) Hypomagnesemia: Code(s): E83.42 - Hypomagnesemia Status: Acute Assessment and Plan: received a magnesium rider of 4 g yesterday, magnesium is 2.7 today, started her on oral magnesium so that she may be discharged on that dose in attempts to keep her magnesium levels up and monitored at the [facility]. vital signs have otherwise been stable no tachycardia noted continue telemetry monitoring continuously. 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 Then she transferred to [facility] and right knee pain was uncontrolled, so she was admitted to [facility] yesterday for Right knee pain control and electrolytes disturbances. Then while here at [facility], we ordered an xray and a CT of her right knee for diagnostic purposes. Needs Orthopedic Surgeon Consult due to CT scan results of Right Knee including possible depression fracture of lateral tibial plateau (showing lucency and reabsorption, may be wear or may be fracture or erosion from infection or arthritis), Severe Right Knee Osteoarthritis, and Right Knee Joint Loose Bodies; plus Fall on Right knee in last 2-3 weeks, and history of Septic right knee and septic right ankle with surgical debridements. Needs Infectious Disease Consult due to recurrent Bacteremia of Blood cultures x 2 (collected February 17) with Gram + Cocci in clusters, Urine Culture remains Pending at [facility] (please F/U with us). Started on IV Vanc on February 18. Transfer patient back to [facility]
--- NOTE | 2020-02-19 15:32 | PM.EVENT ---
Event Note Event Note Event Note: For this patient encounter, I reviewed with Lyric Ellis and reviewed documentation, treatment plan, and medical decision making; and I had [id number] time with this patient. Right knee has minor swelling. No redness. Pt. able to fully extend right knee and flex to around 60 degrees. Tender along the mari-lat. tibial plateau. Agree with transfer for infectious disease and cardiology consult for bactermia and ortho consult for tibial fracture.
--- NOTE | 2020-02-19 15:39 | PC.NURSE ---
Report to Pepper at [facility] due to positive blood culture and new fx of tibial plateau
[2020-02-19] MEDS: ONDANSETRON INJ 4 MG/2 ML VIAL IV PUSH (15:45)
[2020-02-19 16:00] VITALS: BP 109/54; PULSE 72; RESP 18; TEMP 36.3; O2SAT 95
--- NOTE | 2020-02-19 16:03 | PC.NURSE ---
patient requesting pain medication prior to transfer, hospitalist aware and order received, paper work for transfer being completed, vanco infusing, fluids infusing and k rider infusing, ivey patent and draining
[2020-02-19] MEDS: MORPHINE SULFATE 4 MG/ML INJ IV PUSH (16:31)
--- NOTE | 2020-02-19 17:05 | PC.NURSE ---
Report to EMS, copy of chart with ambulance service
== END 2020-02-19 17:05 | disposition short-term general hospital (02) | DRG 425 ==
LOC: CHSED 12:23 → CHS2ND 13:55
PROVIDERS: Nurse Practitioner; Admitting Provider Emergency Medicine; Emergency Provider Emergency Medicine; PCP Nurse Practitioner Family; Visit Provider Emergency Medicine
DX: E87.6 Hypokalemia (principal); E87.1 Hypo-osmolality and hyponatremia; N17.9 Acute kidney failure, unspecified; I11.0 Hypertensive heart disease with heart failure; I50.9 Heart failure, unspecified; I48.20 Chronic atrial fibrillation, unspecified; I25.10 Atherosclerotic heart disease of native coronary artery without angina pectoris; E03.9 Hypothyroidism, unspecified; M48.00 Spinal stenosis, site unspecified; K76.0 Fatty (change of) liver, not elsewhere classified; F41.9 Anxiety disorder, unspecified; E66.01 Morbid (severe) obesity due to excess calories; F17.200 Nicotine dependence, unspecified, uncomplicated; Z79.01 Long term (current) use of anticoagulants; Z95.2 Presence of prosthetic heart valve; E78.5 Hyperlipidemia, unspecified; M25.561 Pain in right knee; F32.9 Major depressive disorder, single episode, unspecified; E83.42 Hypomagnesemia; S82.121A Displaced fracture of lateral condyle of right tibia, initial encounter for closed fracture; R78.81 Bacteremia; L98.499 Non-pressure chronic ulcer of skin of other sites with unspecified severity; M17.11 Unilateral primary osteoarthritis, right knee; M23.41 Loose body in knee, right knee; W19.XXXA Unspecified fall, initial encounter; Z95.5 Presence of coronary angioplasty implant and graft
CPT/HCPCS: 36415; 51701; 71045; 73560; 73700; 80048; 80053; 81001; 83605; 83690; 83735; 83880; 84100; 84132; 84443; 84484; 85025; 85027; 85610; 85730; 87040; 87077; 87086; 87186; 93005; 93971; 96365; 96375; 97162; 97165; 99285; A9270; J2270; J2405; J3370; J3475; J3480; J7030; J7050

== ENCOUNTER 2020-04-18 14:13 | Outpatient (CLI) | payer OTHER, SELFPAY ==
--- NOTE | 2020-04-18 14:30 | ECHO_ITS ---
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 Strain analysis performed. 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 Summary 1. Left ventricular chamber dimension is normal. 2. Left ventricular systolic function is normal, estimated at 55-60%. 3. There is mildly increased left ventricular wall thickness. 4. The left ventricular diastolic function is abnormal. 5. E/e' 17 is elevated. 6. Global longitudinal strain is abnormal at -15.7%. 7. Right ventricular systolic function is reduced with abnormal TAPSE 1.2 cm.. 8. Left atrial chamber dimension is moderately enlarged. 9. Right atrial chamber dimension is mildly enlarged. 10. The mechanical aortic valve is not well visualized. 11. There is mild regurgitation of the mechanical aortic valve. 12. Significant turbulent flow between aortic root just at or above the level of mechanical aortic valve and pulmonary artery just above the level of pulmonic valve suggestive of a large fistula. 13. There is mild tricuspid valve regurgitation. 14. No pulmonary hypertension, estimated pulmonary arterial systolic pressure is 36 mmHg. 15. The aortic root size at the sinus of Valsalva is borderline dilated at 4.0 cm. Left Ventricle E/e' 17 is elevated. Global longitudinal strain is abnormal at -15.7%. Left ventricular chamber dimension is normal. Left ventricular systolic function is normal, estimated at 55-60%. There is mildly increased left ventricular wall thickness. The left ventricular diastolic function is abnormal. Right Ventricle Right ventricular systolic function is reduced with abnormal TAPSE 1.2 cm.. Right ventricular chamber dimension is not well visualized. Left Atria Left atrial chamber dimension is moderately enlarged. Right Atria Right atrial chamber dimension is mildly enlarged. Aortic Valve No aortic stenosis based on valve area and gradients. Significant turbulent flow between aortic root just at or above the level of mechanical aortic valve and pulmonary artery just above the level of pulmonic valve suggestive of a large fistula. The mechanical aortic valve is not well visualized. There is no mechanical aortic valve stenosis. There is mild regurgitation of the mechanical aortic valve. Pulmonic Valve The pulmonic valve is not well visualized. Mitral Valve There is no mitral valve stenosis. There is mild mitral valve regurgitation. Tricuspid Valve There is mild tricuspid valve regurgitation. No pulmonary hypertension, estimated pulmonary arterial systolic pressure is 36 mmHg. Pericardium/Pleural There is no pericardial effusion. Inferior Vena Cava Normal inferior vena cava with >50% collapse upon inspiration consistent with normal right atrial pressure, 5 mmHg. Aorta The aortic root size at the sinus of Valsalva is borderline dilated at 4.0 cm.
== END 2020-04-18 14:14 | disposition home or self-care (01) ==
LOC: CHSIMG 14:15
PROVIDERS: PCP Family Medicine; Visit Provider Internal Medicine Interventional Cardiology
DX: I77.2 Rupture of artery (principal)
CPT/HCPCS: 93306

== ENCOUNTER 2020-08-16 10:59 | Outpatient (RCR) | payer OTHER, SELFPAY ==
--- NOTE | 2020-08-16 12:09 | PTOPEVAL ---
Thank you for referring Jazmyn Mcdonald to [facility].? The patient is scheduled to be seen for therapy? ____x/week for ___ weeks. Please review, sign, date and return this plan of care KAYLA. I agree with and certify that the following plan of care is medically necessary. Referring Physician Date Admitting Provider: Attending Provider: Elroy Faith M.D. Referring Provider: VETO Outpatient Evaluation Start: 08/16/20 11:12 Freq: Status: Active Protocol: Document 08/16/20 11:10 [facility] (Rec: 08/16/20 11:27 [facility] [id number]) Therapy Assessment Status Assessment Status Assessment Status Evaluation Outpatient Past Medical History Cardiovascular History Hx Angina Yes Hx Atrial Fibrillation Yes Hx Cardiac Arrhythmia Yes Hx Cardiac Catheterization Yes Hx Cardiac Surgery Yes Hx Chest Pain Yes Hx Congestive Heart Failure Yes Hx Coronary Artery Disease Yes Hx Coronary Stent Yes Hx Hypertension Yes Hx Myocardial Infarction Yes Genitourinary History Hx Urinary Tract Infection Yes Endocrine History Hx Diabetes Yes Hx Hypothyroidism Yes HEENT History Hx Cataracts Yes Psychosocial History Hx Anxiety Yes Hx Depression Yes Pain History Has Past Pain Affected Your Daily Life Yes History of Long-Term Prescription Pain Yes Medication Use (Opiates) Other History Hx Recent Acute Infection Yes Hx Other Surgeries Yes: septic r knee Evaluation Information Problem Diagnosis CVA Onset 08/09/20 Subjective Information patient reports she had sepsis Query Text:As Reported By Patient/ and mini strokes and a CVA Family back in late november of this year. she reports she had to have a debridement of the R knee due to sepsis and she also had a cardiac surgery for her cardiac issues. she reports she has poor endurance for walking. she reports she is using a walker at all times . she reports she is having difficulty with walking and standing on the R LE to hold her balance. she reports she has fallen in the shower since her surgery. she reports she uses a wheelchair in the home.
--- NOTE | 2020-08-23 11:19 | PTOPEVAL ---
Thank you for referring Jazmyn Mcdonald to [facility].? The patient is scheduled to be seen for therapy? ____x/week for ___ weeks. Please review, sign, date and return this plan of care KAYLA. I agree with and certify that the following plan of care is medically necessary. Referring Physician Date Admitting Provider: Attending Provider: Elroy Faith M.D. Referring Provider: VETO Outpatient Evaluation Start: 08/16/20 11:12 Freq: Status: Active Protocol: Document 08/16/20 11:10 [facility] (Rec: 08/16/20 11:27 [facility] [id number]) Therapy Assessment Status Assessment Status Assessment Status Evaluation Outpatient Past Medical History Cardiovascular History Hx Angina Yes Hx Atrial Fibrillation Yes Hx Cardiac Arrhythmia Yes Hx Cardiac Catheterization Yes Hx Cardiac Surgery Yes Hx Chest Pain Yes Hx Congestive Heart Failure Yes Hx Coronary Artery Disease Yes Hx Coronary Stent Yes Hx Hypertension Yes Hx Myocardial Infarction Yes Genitourinary History Hx Urinary Tract Infection Yes Endocrine History Hx Diabetes Yes Hx Hypothyroidism Yes HEENT History Hx Cataracts Yes Psychosocial History Hx Anxiety Yes Hx Depression Yes Pain History Has Past Pain Affected Your Daily Life Yes History of Long-Term Prescription Pain Yes Medication Use (Opiates) Other History Hx Recent Acute Infection Yes Hx Other Surgeries Yes: septic r knee Evaluation Information Problem Diagnosis CVA Onset 08/09/20 Subjective Information patient reports she had sepsis Query Text:As Reported By Patient/ and mini strokes and a CVA Family back in late november of this year. she reports she had to have a debridement of the R knee due to sepsis and she also had a cardiac surgery for her cardiac issues. she reports she has poor endurance for walking. she reports she is using a walker at all times . she reports she is having difficulty with walking and standing on the R LE to hold her balance. she reports she has fallen in the shower since her surgery. she reports she uses a wheelchair in the home.
--- NOTE | 2020-10-04 12:27 | PTOPEVAL ---
Thank you for referring Jazmyn Mcdonald to [facility]– [place].? The patient is scheduled to be seen for therapy? ____x/week for ___ weeks. Please review, sign, date and return this plan of care KAYLA. I agree with and certify that the following plan of care is medically necessary. Referring Physician Date Admitting Provider: Attending Provider: Elroy Faith M.D. Referring Provider: VETO Outpatient Evaluation Start: 08/16/20 11:12 Freq: Status: Active Protocol: Document 10/04/20 11:03 Nito (Rec: 10/04/20 12:24 [facility] [id number]) Outpatient Past Medical History Cardiovascular History Hx Angina Yes Hx Atrial Fibrillation Yes Hx Cardiac Arrhythmia Yes Hx Cardiac Catheterization Yes Hx Cardiac Surgery Yes Hx Chest Pain Yes Hx Congestive Heart Failure Yes Hx Coronary Artery Disease Yes Hx Coronary Stent Yes Hx Hypertension Yes Hx Myocardial Infarction Yes Genitourinary History Hx Urinary Tract Infection Yes Endocrine History Hx Diabetes Yes Hx Hypothyroidism Yes HEENT History Hx Cataracts Yes Psychosocial History Hx Anxiety Yes Hx Depression Yes Pain History Has Past Pain Affected Your Daily Life Yes History of Long-Term Prescription Pain Yes Medication Use (Opiates) Other History Hx Recent Acute Infection Yes Hx Other Surgeries Yes: septic r knee Pain Assessment Timing of Pain Assessment Timing of Pain Assessment Assessment Pain Scale Pain Scale Used Numeric (1 - 10) Self Report Pain Assessment Right Knee(s) Reported Pain Level 4 Greatest Pain Intensity 7 Pain Score Pain Score 4: Self Report Interventions Used Interventions Used By Clinicians Activity or ADL's,Education, Exercise Lower Extremity Muscle Strength Testing General Lower Extremity Strength Gross Lower Extremity Strength 4+/5 L hip flex sitting 4/5 R hip flex sitting 4+/5 bilateral hip abd sitting 5/5 L knee ext, 5/5 L knee flex 4-/5 R knee ext, 4-/5 R knee flex (pain in the R knee with mmt). 3+/5 L ankle DF, 4+/5 L ankle PF 3+/5 R ankle DF, 4/5 R ankle PF Balance Assessment Tinetti Balance Assessment Sitting Balance Steady, safe Ability to Arise Able, uses arms to help
== END 2020-11-03 10:17 | disposition home or self-care (01) ==
LOC: CHSPT 10:59
PROVIDERS: PCP Family Medicine; Visit Provider Family Medicine
DX: R26.9 Unspecified abnormalities of gait and mobility (principal); I63.9 Cerebral infarction, unspecified
CPT/HCPCS: 97110; 97112; 97161; 97530

== ENCOUNTER 2021-10-31 11:42 | Outpatient (CLI) | payer OTHER, SELFPAY ==
--- NOTE | ~2021-10-31 | MM_ITS ---
EXAMINATION: MM screening marilynn BI w bennie HISTORY: Screening TECHNIQUE: Craniocaudal and mediolateral oblique 3-D tomosynthesis images were obtained and synthetic 2-D images were generated. CAD analysis was submitted and interpreted. COMPARISON: 11/19/2018 BREAST PARENCHYMAL COMPOSITION: The breasts are almost entirely fatty. FINDINGS: There is no evidence of suspicious mass, calcification, or architectural distortion to sugg est malignancy in either breast. There has been no suspicious interval change. IMPRESSION: 1. No mammographic evidence of malignancy. 2. Recommend routine screening mammography in one year. BI-RADS Category 1: Negative Reviewed, dictated and finalized at location A. [facility]LE[facility]
== END 2021-10-31 11:43 | disposition home or self-care (01) ==
LOC: CHSIMG 11:47
PROVIDERS: PCP Family Medicine
DX: Z12.31 Encounter for screening mammogram for malignant neoplasm of breast (principal)
CPT/HCPCS: 77063; 77067

== ENCOUNTER 2022-03-02 19:52 | Emergency (ER) | payer OTHER, SELFPAY ==
[2022-03-02 19:56] VITALS: BP 132/67; PULSE 89; RESP 16; TEMP 36.7; O2SAT 99
[2022-03-02] MEDS: PROMETHAZINE HCL 25 MG/ML AMPUL IM (20:26)
[2022-03-02 20:46] LABS: Basophils Absolute Auto 0.08 K/mm3 (0.00-0.10); Basophils Percent Auto 0.7 % (0.0-1.0); Eosinophils Absolute Auto 0.18 K/mm3 (0.02-0.50); Eosinophils Percent Auto 1.7 % (1.0-6.0); Hematocrit 44.2 % (35.0-49.0); Hemoglobin 13.6 g/dL (12.0-15.0); Immature Granulocyte Absolute 0.09 K/mm3 (0.00-0.00); Immature Granulocyte Percent A 0.8 % (0.0-0.0); Lymphocytes Percent Auto 9.3 % (18.0-42.0); Mean Corpuscular HGB Conc 30.8 g/dL (32.0-36.0); Mean Corpuscular Hemoglobin 25.6 pg (27.0-31.0); Mean Corpuscular Volume 83.2 fL (78.0-102.0); Mean Platelet Volume 9.7 fl (9.2-11.8); Monocytes Absolute Auto 0.93 K/mm3 (0.10-0.90); Monocytes Percent Auto 8.7 % (2.0-11.0); Neutrophils Absolute Auto 8.5 K/mm3 (1.7-7.2); Neutrophils Percent Auto 78.8 % (50.0-70.0); Platelet Count Result 302 K/mm3 (150-420); Red Blood Count 5.31 M/mm3 (4.20-5.40); Red Cell Distribution Width 15.9 % (11.6-14.4); White Blood Count 10.8 K/mm3 (4.8-10.8)
[2022-03-02 21:04] LABS: Partial Thromboplastin Time 40.7 SEC (23.90-30.70); Prothrombin Time 29.8 Seconds (9.50-12.10)
[2022-03-02 21:05] LABS: Alanine Aminotransferase 44 U/L (14-59); Albumin Level 3.8 g/dL (3.4-5.0); Alkaline Phosphatase 222 U/L (46-116); Anion Gap 10 mmol/L (8-16); Aspartate Amino Transferase 74 U/L (15-37); Bilirubin,Total 1.4 mg/dL (0.00-1.00); Blood Urea Nitrogen 21 mg/dL (7-18); Calcium 9.5 mg/dL (8.5-10.1); Carbon Dioxide 27 mmol/L (21-32); Chloride 104 mmol/L (98-108); Estimated CRCL calculation 49 ml/min; Estimated Glomerular Filt Rate 37; Glucose 173 mg/dL (70-99); Osmolality Calculated 299 mOsm/kg (285-295); Potassium 3.6 mmol/L (3.5-5.1); Sodium 141 mmol/L (136-145); Total Protein 7.3 g/dL (6.4-8.2)
--- NOTE | 2022-03-02 21:16 | PC.NURSE ---
pt is resting on stretcher in exam room. bleeding has slowed with surigicel in place. pt is awaiting erp decision. in waiting room, he has been updated. will continue to monitor.
--- NOTE | 2022-03-02 21:56 | PC.NURSE ---
PT IS SLEEPING IN EXAM ROOM, GAUZE IS FREE OF BLOOD AT THIS TIME, WILL CONTINUE TO MONITOR.
--- NOTE | 2022-03-02 22:19 | ED.DENTAL ---
HPI - Dental/Oral General Chief complaint: Dental/Oral Stated complaint: bleeding from tooth Time Seen by Provider: 03/02/22 19:56 Source: patient and RN notes reviewed Mode of arrival: ambulatory Limitations: no limitations History of Present Illness HPI Narrative: post left upper molar dental procedure: bleeding. pt is on Coumadin Onset (ago): hour(s) (5) Duration: constant Severity: mild Relieving factors: nothing Exacerbating factors: nothing Context: trauma (mechanism) Treatment prior to arrival: none Related Data Home Medications Medication Instructions Recorded Confirmed levothyroxine 200 mcg tablet 200 mcg PO DAILY 10/29/19 03/02/22 sertraline 50 mg tablet 50 mg PO DAILY 10/29/19 03/02/22 acetaminophen 650 mg 650 mg PO Q8H 02/18/20 03/02/22 tablet,extended release amiodarone 200 mg tablet 200 mg PO DAILY 02/18/20 03/02/22 carvedilol 3.125 mg tablet 3.125 mg PO DAILY 02/18/20 03/02/22 furosemide 40 mg tablet 40 mg PO DAILY 02/18/20 03/02/22 pantoprazole 40 mg tablet,delayed 40 mg PO DAILY 02/18/20 03/02/22 release warfarin 3 mg tablet 3 mg PO DAILY 02/18/20 03/02/22 Allergies Allergy/AdvReac Type Severity Reaction Status Date / Time Penicillins Allergy Severe Anaphylactic Verified 03/02/22 20:11 Shock Review of Systems Review of Systems: All systems reviewed & are unremarkable except as noted in HPI and below Constitutional: Constitutional: Reports no additional constitutional complaints Eyes: Eyes: Reports no additional eye complaints ENT: Reports system reviewed and no additional complaints, except as documented Comments: bleeding gum Cardiovascular: Cardiovascular: Reports no additional cardiovascular complaints Respiratory: Respiratory: Reports no additional respiratory complaints Gastrointestinal: Gastrointestinal: Reports no additional gastrointestinal complaints Genitourinary: Genitourinary: Reports no additional female genitourinary complaints Musculoskeletal: Musculoskeletal: Reports no additional musculoskeletal complaints Integumentary/Breasts: Skin/Breast: Reports system reviewed and no additional complaints, except as docu Neurologic: Reports system reviewed and no additional complaints, except as documented Psychiatric: Psychiatric: Reports no additional psychiatric complaints Endocrine: Endocrine: Reports no additional endocrine complaints Hematologic/Lymphatic: Hematologic/Lymphatic: Reports no additional hematologic/lymphatic complaints Allergic/Immunologic: Allergic/Immunologic: Reports no additional allergic/immunologic complaints PMFSH Past Medical History Medical History Anxiety CAD (coronary artery disease) Gums, bleeding History of left heart catheterization Hypertension Morbid obesity Smoking Tobacco dependence Type 2 diabetes mellitus Family History Family History Father , father in his 70s. He was diabetic Diabetes mellitus Sibling Diabetes mellitus Grandparent Breast cancer Skin cancer Hypertension Grandparent Pancreatic cancer Social History Social History Smoking status: Former smoker Tobacco type: cigarettes Smoking end date: 10/26/19 Alcohol intake: never Alcohol use details: denies alcohol use Substance use: former Substance use type: does not use Last use: oct 26, 2019 Gender identity (if verbalized by the patient): Female Spiritual care concerns: No Agree to blood products: Yes Exam Const: General: healthy appearing and no acute distress Nutritional Appearance: well nourished Orientation/consciousness: patient oriented x3 Limitations: no limitations HENMT: Head: normal to inspection Ears: external ears normal, TM's normal bilaterally and EAC's normal General nose exam: Normal external nose present and Normal
[2022-03-02] MEDS: PHYTONADIONE INJ 10 MG/ML AMP 5 MG IM (22:30)
[2022-03-02 22:37] VITALS: BP 143/74; PULSE 84; RESP 14; TEMP 36.7; O2SAT 99
== END 2022-03-02 22:35 | disposition home or self-care (01) ==
PROVIDERS: Emergency Provider Emergency Medicine; PCP Family Medicine
DX: K06.8 Other specified disorders of gingiva and edentulous alveolar ridge (principal)
CPT/HCPCS: 36415; 80053; 85025; 85610; 85730; 96372; 99284; J2550; J3430

== ENCOUNTER 2022-03-03 12:30 | Emergency (ER) | payer OTHER, SELFPAY ==
[2022-03-03 12:30] VITALS: BP 134/74; PULSE 85; RESP 18; TEMP 35.9; O2SAT 98
[2022-03-03 13:05] LABS: Basophils Absolute Auto 0.08 K/mm3 (0.00-0.10); Basophils Percent Auto 0.8 % (0.0-1.0); Eosinophils Absolute Auto 0.12 K/mm3 (0.02-0.50); Eosinophils Percent Auto 1.2 % (1.0-6.0); Hematocrit 44.2 % (35.0-49.0); Hemoglobin 13.6 g/dL (12.0-15.0); Immature Granulocyte Absolute 0.06 K/mm3 (0.00-0.00); Immature Granulocyte Percent A 0.6 % (0.0-0.0); Lymphocytes Absolute Auto 1.18 K/mm3 (1.10-4.50); Lymphocytes Percent Auto 11.6 % (18.0-42.0); Mean Corpuscular HGB Conc 30.8 g/dL (32.0-36.0); Mean Corpuscular Hemoglobin 25.7 pg (27.0-31.0); Mean Corpuscular Volume 83.6 fL (78.0-102.0); Mean Platelet Volume 9.3 fl (9.2-11.8); Monocytes Absolute Auto 0.95 K/mm3 (0.10-0.90); Monocytes Percent Auto 9.3 % (2.0-11.0); Neutrophils Absolute Auto 7.8 K/mm3 (1.7-7.2); Neutrophils Percent Auto 76.5 % (50.0-70.0); Platelet Count Result 278 K/mm3 (150-420); Red Blood Count 5.29 M/mm3 (4.20-5.40); White Blood Count 10.2 K/mm3 (4.8-10.8)
[2022-03-03 13:20] LABS: INR 2.7; Partial Thromboplastin Time 42.1 SEC (23.90-30.70); Prothrombin Time 27.1 Seconds (9.50-12.10)
[2022-03-03 14:00] VITALS: BP 138/88; PULSE 79; RESP 18; TEMP 36.9; O2SAT 99
--- NOTE | 2022-03-03 14:06 | ED.DENTAL ---
HPI - Dental/Oral General Chief complaint: Dental/Oral Stated complaint: can't get mouth to stop bleeding after dental proc Source: patient Mode of arrival: ambulatory Limitations: no limitations History of Present Illness HPI Narrative: this is a 61-year-old female with some history of aortic valve replacement and currently on Coumadin with recent dental extraction and bleeding from the extracted tooth gum area, was seen yesterday and had a PT INR performed and was given vitamin K. The patient continues to have trickle in the extracted tooth area patient otherwise doing well with no fever chills noted on dental pain. Teeth map: 1. Recent dental extraction and bleeding from the extracted tooth area Onset (ago): day(s) Duration: constant Severity: mild Related Data Home Medications Medication Instructions Recorded Confirmed levothyroxine 200 mcg tablet 200 mcg PO DAILY 10/29/19 03/03/22 sertraline 50 mg tablet 50 mg PO DAILY 10/29/19 03/03/22 acetaminophen 650 mg 650 mg PO Q8H 02/18/20 03/03/22 tablet,extended release amiodarone 200 mg tablet 200 mg PO DAILY 02/18/20 03/03/22 carvedilol 3.125 mg tablet 3.125 mg PO DAILY 02/18/20 03/03/22 furosemide 40 mg tablet 40 mg PO DAILY 02/18/20 03/03/22 pantoprazole 40 mg tablet,delayed 40 mg PO DAILY 02/18/20 03/03/22 release warfarin 3 mg tablet 3 mg PO DAILY 02/18/20 03/03/22 Allergies Allergy/AdvReac Type Severity Reaction Status Date / Time Penicillins Allergy Severe Anaphylactic Verified 03/03/22 13:06 Shock Review of Systems Review of Systems: All systems reviewed & are unremarkable except as noted in HPI and below PMFSH Past Medical History Medical History Anxiety CAD (coronary artery disease) Gums, bleeding History of left heart catheterization Hypertension Morbid obesity Smoking Tobacco dependence Type 2 diabetes mellitus Family History Family History Father , father in his 70s. He was diabetic Diabetes mellitus Sibling Diabetes mellitus Grandparent Breast cancer Skin cancer Hypertension Grandparent Pancreatic cancer Social History Social History Smoking status: Former smoker Tobacco type: cigarettes Smoking end date: 10/26/19 Alcohol intake: never Alcohol use details: denies alcohol use Substance use: former Substance use type: does not use Last use: oct 26, 2019 Gender identity (if verbalized by the patient): Female Spiritual care concerns: No Agree to blood products: Yes Exam Const: General: healthy appearing and no acute distress Nutritional Appearance: well nourished Orientation/consciousness: patient oriented x3 Limitations: no limitations HENMT: Head: normal to inspection General nose exam: Normal external nose present Face and sinus: normal facial exam Other: Left upper premolar area with extracted tooth and a bleeding from the dry socket area Neck: Neck: normal visual inspection, no lymphadenopathy and no meningeal signs Chest: Chest palpation & inspection: normal inspection of the chest Resp: Effort & Inspection: normal respiratory effort Auscultation: clear to auscultation bilaterally Cardio: Rate: regular rate Rhythm: regular rhythm GI: Auscultation: normal bowel sounds Back/Spine/Pelvis: Back: no CVA tenderness Skin: General skin exam: normal color Rashes: no rashes Wounds: no wounds Neuro: General: patient oriented x3 Extrem: General: normal to inspection, no clubbing, cyanosis or edema and no pedal edema Psych: Mental Status: mental status grossly normal Course Course Emergency Course: patient biting down with some with gauze and bleeding has slowed considerably patient had an INR drawn that was 2.7 and patient received a dose of 10mg subQ vitamin K and will discharge home wit
[2022-03-03] MEDS: PHYTONADIONE INJ 10 MG/ML AMP SUB-Q (14:16)
== END 2022-03-03 14:21 | disposition home or self-care (01) ==
PROVIDERS: Emergency Provider Emergency Medicine
DX: K06.8 Other specified disorders of gingiva and edentulous alveolar ridge (principal)
CPT/HCPCS: 36415; 85025; 85610; 85730; 96372; 99283; J3430